=== PATIENT | female | born 1935 | race Caucasian/White ===

== ENCOUNTER 2016-03-28 11:30 | Day surgery (SDC) | payer OTHER ==
[2016-03-20 10:43] VITALS: BMI 22.7
[~2016-03-28 11:30] MED LIST: LIDOCAINE HCL 2% (50ML VIAL) INF ONE; ceFAZolin SODIUM 1 GM VIAL IVPB ONE
[2016-03-28] MEDS ORDERED: CLINDAMYCIN 600 MG PREMIX BAG IVPB ONE (13:49)
[2016-03-28] MEDS ORDERED: LIDOCAINE HCL 2% (50ML VIAL) INF ONE (13:50)
[2016-03-28] MEDS ORDERED: LIDOCAINE HCL 2% (50ML VIAL) PNB ONE (13:50)
--- NOTE | 2016-03-28 14:46 | OP ---
Operative Note - Note: Operative Date: 03/28/16 Pre-Operative Diagnosis: L sub-1st metatarsal DM foot ulcer Operation: L 1st metatarsal head resection, debridement of ulcer Post-Operative Diagnosis: Same as Pre-op Surgeon: Jorden Desai Anesthesia: Local, MAC Specimens Removed: 1st metatarsal head, sesamoids left foot Estimated Blood Loss (mls): 20 Instrument used (Debridements only): #15 blade scalpel- sharp excisional debridement Operative Report Dictated: Yes
[2016-03-28] MEDS ORDERED: ONDANSETRON 4 MG/2 ML VIAL IVPUSH PRN (14:51)
[2016-03-28] MEDS ORDERED: oxyCODONE HCL 5 MG TABLET PO PRN (14:51)
[2016-03-28] MEDS ORDERED: morphine CARPU-JECT 2 MG/1 ML DISP.SYRIN IVPUSH PRN (14:51)
[2016-03-28] MEDS ORDERED: LACTATED RINGERS SOLUTION 1,000 ML IV SCH (15:00)
[2016-03-28 17:26] VITALS: TEMP 97.7
[2016-03-28 17:36] VITALS: BP 143/60; PULSE 86
--- NOTE | 2016-03-29 10:25 | OP ---
DATE OF OPERATION: 03/28/2016 PREOPERATIVE DIAGNOSIS: Left sub 1st metatarsal ulcer, diabetic. POSTOPERATIVE DIAGNOSIS: Left sub 1st metatarsal ulcer, diabetic. PROCEDURE: 1. Left 1st metatarsal head resection. 2. Left foot ulcer debridement. SURGEON: Jorden Desai DPM SPECIAL CLIENT BUS DRIVER: Steven Ascencio, PGY-3, [facility]. ANESTHESIA: Local with IV sedation. HEMOSTASIS: None. ESTIMATED BLOOD LOSS: 20 mL. PATHOLOGY: First metatarsal head, sesamoid, left foot. COMPLICATIONS: None. DESCRIPTION OF PROCEDURE: The patient was brought to the operating room and placed on the operating table in the supine position. I applied a pneumatic ankle tourniquet to the patients left ankle. However, I elected to not use hemostasis during the course of this procedure. Following the induction of IV sedation, local anesthesia was achieved with 10 mL of 2% lidocaine plain in local digital block fashion. The left foot was then scrubbed, prepped, and draped in the usual aseptic fashion. I directed my attention to the left foot where a sub 1st metatarsal ulcer was visualized and appreciated. I began the procedure my making a 4-cm linear longitudinal incision dorsally over the 1st metatarsophalangeal joint. The incision was carried deeply using sharp and blunt dissection taking care to retract vital neural and vascular structures. All bleeders were cauterized and ligated as needed. Next, a dorsal linear capsulotomy was performed over the 1st metatarsophalangeal joint. The deep capsular and periosteal structures were reflected medially and laterally to expose the 1st metatarsal head. Next, using a sagittal saw, the 1st metatarsal head was resected. Once soft tissue attachments were removed, the 1st metatarsal head was removed in total and sent to Pathology for analysis. Next, I continued plantarly to freely mobilize the medial and lateral sesamoids. Those medial and lateral sesamoids were free mobilized and resected using a collar and crown scissors. Once removed, the sesamoids were placed with the 1st metatarsal sent to Pathology for analysis. The surgical site was copiously irrigated with sterile saline. The dorsal 1st metatarsal stump was smoothed using a hand rasp. Next, the surgical site was copiously irrigated with sterile saline. The skin was coapted and maintained utilizing 3-0 nylon in simple interrupted suture fashion. Finally, I directed my attention to the plantar 1st metatarsal ulcer, which was sharply debrided using No. 15 blade scalpel to the level of subcutaneous tissue. On the conclusion of the procedure, the surgical site was packed lightly dorsally using 0.25-inch plain packing. The surgical site was then covered with Xeroform, and a compressive dressing was applied to the left foot consisting of sterile gauze, Susan, Kerlix, and an Jose wrap. The patient tolerated the procedure and anesthesia well without complications. She was transferred from the operating room to the recovery unit with vital signs stable and neurovasculature intact to the left foot. MATTHIAS [id number] cc: [facility]
--- NOTE | 2016-03-30 15:49 | PATH ---
Surgical Pathology Report Patient Name: COSME HITCHCOCK [facility]. Rec. #: [id number] /Age/Gender: 1935 (Age: 80) / F Account: [id number] Location: [facility] SURGICAL Taken: 03/28/2016 Received: 03/29/2016 Reported: 03/30/2016 Physicians: Jorden Desai DPM Specimen(s) Received LEFT FOOT METATARSAL HEAD Clinical History Left foot decubitus ulcer Final Diagnosis BONE, LEFT FIRST METATARSAL HEAD, RESECTION: VIABLE BONE AND CARTILAGE WITH DEGENERATIVE CHANGES. BONE AT RESECTION MARGIN APPEARS VIABLE. Electronically Signed Simone Jacob M.D. Gross Description Received in formalin, labeled "left first bone metatarsal head" are 2 talbot, irregular portions of bone measuring 2.0 x 1.8 x 0.6 cm and 2.4 x 1.8 x 1.5 cm. The larger portion is consistent with a metatarsal head. The metatarsal head displays smooth articular cartilage at one aspect. The opposing aspect displays smooth trabecular bone, possibly consistent with a true bone margin. Also received within the same container is a 2.4 x 1.5 x 0.7 cm irregular portion of talbot soft tissue. Software Reliability Engineer sections are submitted in 4 cassettes as follows: 1-bone margin with smooth articular cartilage from metatarsal head, following decalcification; 2-bone margin with trabecular bone from metatarsal head (probable true bone margin), following decalcification; 3-indirect sales representative sections from smaller portion of bone, following decalcification; 4-indirect sales representative sections from the soft tissue. 03/29/201603/29/2016
--- NOTE | 2016-04-11 08:35 | HP ---
Admitting History and Physical - Primary Care Physician PCP: Jose Petty I - Admission Chief Complaint: L sub-1st metatarsal head ulcer History of Present Illness: Patient is long standing, compliant patient at [facility] [place]. She has sustained a sub-1st metatarsal head ulcer of the left foot for a few months and has not healed appropriately. After discussing conservative and surgical options, the patient elected to have metatarsal head resection and ulcer debridement operatively. History Source: Patient Limitations to Obtaining History: No Limitations (After thorough discussion including risks, benefits and alternatives to surgery, the patient is in agreement for planned procedure. Plan for L 1st metatarsal head resection and debridement of ulcer.) - Past Medical History Cardiovascular: Yes: CAD, HTN, Hyperlipdemia, PA Heme/Onc: Yes: Anemia Infectious Disease: Yes: Other (history of osteo of right foot with prior abscess) - Past Surgical History Past Surgical History: Yes: CABG, Hysterectomy (partial), Stent (2003) - Advance Directives Advance Directives: Yes: Living Will - Smoking History Smoking history: Former smoker Have you smoked in the past 12 months: No Aproximately how many cigarettes per day: 0 If you are a former smoker, when did you quit?: 50 years - Alcohol/Substance Use Hx Alcohol Use: No History of Substance Use: reports: None - Social History ADL: Support Services (uses walker) History of Recent Travel: No Home Medications - Allergies Allergies/Adverse Reactions: Allergies Allergy/AdvReac Type Severity Reaction Status Date / Time Penicillins Allergy Rash Verified 03/28/16 12:37 chocolate AdvReac Unknown Hives Uncoded 03/28/16 12:37 - Home Medications Home Medications: Ambulatory Orders Ascorbic Acid [Vitamin C -] 500 mg PO DAILY #30 tablet 08/06/14 Aspirin Coated [Ecotrin -] 81 mg PO DAILY #30 tablet.ec 08/06/14 Atorvastatin Ca [Lipitor] 40 mg PO HS #1 tablet 08/06/14 Bupropion HCl [Wellbutrin -] 100 mg PO DAILY #30 tablet 08/06/14 Clopidogrel Bisulfate [Plavix -] 75 mg PO DAILY #30 tablet 08/06/14 Glipizide [Glucotrol -] 10 mg PO BID@0700,1630 #60 tablet 08/06/14 Labetalol HCl [Normodyne -] 200 mg PO BID #1 tablet 06/04/15 Levothyroxine [Synthroid -] 25 mcg PO DAILY #30 tablet 08/06/14 Amlodipine Besylate 10 mg PO DAILY 12/17/15 Famotidine [Pepcid -] 40 mg PO HS 12/17/15 Lando-3 Fatty Acids/Fish Oil [Fish Oil 1,000 mg Softgel] 1 each PO DAILY Lisinopril [Prinivil] 20 mg PO DAILY tablet 12/23/15 Acetaminophen [Tylenol] 650 mg PO PRN PRN 03/20/16 Insulin Regular [NOVOLIN R VIAL *IVPUSH / ER / ICU Only*] 0 units SQ BIDAC 03/20 Naloxegol Oxalate [Movantik] 12.5 mg PO DAILY 03/20/16 Oxycodone HCl 5 mg PO HS 03/20/16 Oxycodone HCl 5 mg PO Q6H PRN 03/20/16 Family Disease History - Family Disease History Family Disease History: Diabetes: Father, Other: Mother ( during childbirth) Physical Examination Vital Signs: Vital Signs Temperature 97.7 F 03/28/16 16:00 Pulse Rate 86 03/28/16 17:32 Respiratory Rate 18 03/28/16 17:32 Blood Pressure 143/60 03/28/16 17:32 O2 Sat by Pulse Oximetry (%) 97 03/28/16 15:45
== END 2016-03-28 18:00 ==
LOC: JASU-SURG 11:30
PROVIDERS: ATTEND Student in an Organized Health Care Education/Training Program
PROC: 0HBNXZZ Excision of Left Foot Skin, External Approach (ICD-10-PCS; 2016-03-28)
PROC: 0QBP0ZZ Excision of Left Metatarsal, Open Approach (ICD-10-PCS; principal; 2016-03-28 13:00)
DX: E11.621 Type 2 diabetes mellitus with foot ulcer (principal); Z79.4 Long term (current) use of insulin
CPT/HCPCS: 73630-TC-LT; 88304-TC; 88311-TC; 94760

== ENCOUNTER 2016-05-23 13:11 | Inpatient (IN) | payer OTHER ==
[2016-05-23 13:19] VITALS: BMI 25.9
[2016-05-23] MEDS ORDERED: CLINDAMYCIN 900 MG PREMIX IVPB 50 ML IVPB ONE ×2 (13:45→14:22)
[2016-05-23] MEDS ORDERED: SODIUM CHLORIDE 1,000 ML IV STA (13:45)
--- NOTE | 2016-05-23 14:06 | PDOC ---
History of Present Illness - General History Source: Patient Exam Limitations: No Limitations - History of Present Illness Initial Comments: 05/23/16 14:30 The patient is a year 80 old female, with a significant past medical history of hypertension, hyperlipidemia, diabetes with history of ulcers and diabetic neuropathy, anemia, pneumonia, acute bronchitis, CHF (left ventricular failure) , CAD status post CABG, PA, and thyroid disease, who presents to the emergency department with non healing left wound. Her diving supervisor called in to admit her for this condition. The patient denies chest pain, shortness of breath, headache and dizziness. Denies fever, chills, nausea, vomit, diarrhea and constipation. Denies dysuria, frequency, urgency and hematuria. Allergies: pencillin, levoquin, chocolate Past surgical history: Cardiac stent (x1), bypass, left hip replacement Social history: No alcohol, tobacco or drug use reported PMD - Dr. Francisco Market Asset Protection Manager - Dr. Desai <Grey Bruno - Last Filed: 05/23/16 14:29> <Kimani Lombardi - Last Filed: 05/23/16 16:50> - General Chief Complaint: Wound Stated Complaint: SENT BY PCP/FOR PAIN Time Seen by Provider: 05/23/16 13:44 Past History <Grey Bruno - Last Filed: 05/23/16 14:29> - Past Medical History Anemia: Yes Asthma: (PNEUMONIA,ACUTE BRONCHITIS) Cardiac Disorders: Yes (CAD, PA, stent, CABG) CHF: (LEFT VENTRICULAR FAILURE) Diabetes: Yes (IDDM) GI Disorders: Yes (GERD,CONSTIPATION) HTN: Yes Hypercholesterolemia: Yes Suicide Attempt (Hx): No Thyroid Disease: Yes (HYPOTHYROIDISM) - Surgical History Cardiac Surgery: Yes (STENT X 1, bypass) Orthopedic Surgery: Yes (LEFT HIP REPLACEMENT) - Psycho/Social/Smoking Cessation Hx Anxiety: No Suicidal Ideation: No Smoking Status: No Smoking History: Former smoker Have you smoked in the past 12 months: No Number of Cigarettes Smoked Daily: 0 If you are a former smoker, when did you quit?: 50 years Information on smoking cessation initiated: No Hx Alcohol Use: No Drug/Substance Use Hx: No Substance Use Type: None Hx Substance Use Treatment: No <Kimani Lombardi - Last Filed: 03/21/17 16:50> - Past Medical History Allergies/Adverse Reactions: Allergies Allergy/AdvReac Type Severity Reaction Status Date / Time Penicillins Allergy Rash Verified 05/23/16 13:16 chocolate AdvReac Unknown Hives Uncoded 05/23/16 13:16 Home Medications: Ambulatory Orders Aspirin Coated [Ecotrin -] 81 mg PO DAILY #30 tablet.ec 08/06/14 Atorvastatin Ca [Lipitor] 40 mg PO HS #1 tablet 08/06/14 Bupropion HCl [Wellbutrin -] 100 mg PO DAILY #30 tablet 08/06/14 Clopidogrel Bisulfate [Plavix -] 75 mg PO DAILY #30 tablet 08/06/14 Glipizide [Glucotrol -] 10 mg PO BID@0700,1630 #60 tablet 08/06/14 Labetalol HCl [Normodyne -] 200 mg PO BID #1 tablet 08/06/14 Levothyroxine [Synthroid -] 25 mcg PO DAILY #30 tablet 08/06/14 Amlodipine Besylate 10 mg PO DAILY 12/17/15 Famotidine [Pepcid -] 40 mg PO HS 12/17/15 [place]-3 Fatty Acids/Fish Oil [Fish Oil 1,000 mg Softgel] 1 each PO DAILY Lisinopril [Prinivil] 20 mg PO DAILY tablet 12/23/15 Acetaminophen [Tylenol] 650 mg PO PRN PRN 03/20/16 Insulin Regular [NOVOLIN R VIAL *IVPUSH / ER / ICU Only*] 0 units SQ BIDAC 03/20 Naloxegol Oxalate [Movantik] 12.5 mg PO DAILY 03/20/16 Oxycodone HCl 5 mg PO HS 03/20/16 Clindamycin [Cleocin -] 1 tab PO TID 05/23/16 Review of Systems - Review of Systems Able to Perform ROS?: Yes Comments:: 05/23/16 14:30 GENERAL/CONSTITUTIONAL: No fever or chills. No weakness. HEAD, EYES, EARS, NOSE AND THROAT: No change in vision. No ear pain or discharge. No sore throat. CARDIOVASCULAR: No chest pain or shortness of breath RESPIRATORY: No cough, wheezing, or hemoptysis. GASTROINTESTINAL: No nausea, vomiting, diarrhea or constipation. GENITOURINARY: No dysuria, frequency, or change in urination. MUSCULOSKELETAL: No joint or muscle swelling or pain. No neck or back pain. SKIN: +Non healing left foot ulcer. NEUROLOGIC: No headache, vertigo, loss of consciousness, or change in strength/ sensation. ENDOCRINE: No increased thirst. No abnormal weight change HEMATOLOGIC/LYMPHATIC: No anemia, easy bleeding, or history of blood clots. ALLERGIC/IMMUNOLOGIC: No hives or skin allergy. <Grey Brunoe - Last Filed: 05/23/16 14:29> *Physical Exam - Vital Signs Last Vital Signs Temp Pulse Resp BP Pulse Ox 98.2 F 83 18 165/83 97 05/23/16 13:16 05/23/16 13:16 05/23/16 13:16 05/23/16 13:16 05/23/16 13:16 - Physical Exam Comments: 05/23/16 14:31 GENERAL: Awake, alert, and fully oriented, in no acute distress HEAD: No signs of trauma, normocephalic, atraumatic EYES: PERRLA, EOMI, sclera anicteric, conjunctiva clear ENT: Auricles normal inspection, hearing grossly normal, nares patent, oropharynx clear without exudates. Moist mucosa NECK: Normal ROM, supple, no lymphadenopathy, JVD, or masses LUNGS: No distress, speaks full sentences, clear to auscultation bilaterally HEART: Regular rate and rhythm, normal S1 and S2, no murmurs, rubs or gallops, peripheral pulses normal and equal bilaterally. ABDOMEN: Soft, nontender, normoactive bowel sounds. No guarding, no rebound. No masses EXTREMITIES: +Foot was bandaged and we didnt look at the foot. Patient had just came from the diving supervisor. Normal range of motion. NEUROLOGICAL: Cranial nerves II through XII grossly intact. Normal speech, normal gait, no focal sensorimotor deficits SKIN: Warm, Dry, normal turgor, no rashes or lesions noted. <Terrie Brunopamela Rubalcava - Last Filed: 05/23/16 14:29> - Vital Signs Last Vital Signs Temp Pulse Resp BP Pulse Ox 98.2 F 83 18 165/83 97 05/23/16 13:16 05/23/16 13:16 05/23/16 13:16 05/23/16 13:16 05/23/16 13:16 <Gabrin,Kimani - Last Filed: 05/23/16 16:50> ED Treatment Course - LABORATORY CBC & Chemistry Diagram: 05/23/16 15:15 05/23/16 15:15 <Kimani Lombardi - Last Filed: 05/23/16 16:50> *DC/Admit/Observation/Transfer - Attestations Scribe Attestion: 05/23/16 14:31 Documentation prepared by Grey Bruno, acting as biomedical engineering technologist for Kimani Lombardi MD <Grey Bruno - Last Filed: 05/23/16 14:29> - Discharge Dispostion Admit: Yes <Kimani Lombardi - Last Filed: 05/23/16 16:50> Diagnosis at time of Disposition: Diabetic foot infection Osteomyelitis of ankle or foot, acute Qualifiers: Laterality: left Qualified Code(s): M86.172 - Other acute osteomyelitis, left ankle and foot - Discharge Dispostion Condition at time of disposition: Improved - Referrals Referrals: Rick Francisco MD [Primary Care Provider] -
[2016-05-23 15:28] LABS: BASOPHIL 0.7 % (0-2.0); EOSINOPHIL 2.4 % (0-4.5); MCH 29.7 pg (25.7-33.7); MCHC 34.2 g/dl (32.0-36.0); MEAN CELL VOLUME 86.9 fl (80-96); NEUTROPHILS 76.8 % (42.8-82.8); PLATELET COUNT 295 K/MM3 (134-434); RDW 13.5 % (11.6-15.6); WHITE BLOOD COUNT 9.5 K/mm3 (4.0-10.0)
[2016-05-23 16:05] LABS: ALBUMIN 3.3 g/dl (3.4-5.0); BILIRUBIN,TOTAL 0.4 mg/dL (0.2-1.0); CALCIUM 8.8 mg/dL (8.5-10.1); CREATININE 1.2 mg/dL (0.55-1.02)
[2016-05-23 16:06] LABS: TOT PROT 6.7 g/dl (6.4-8.2)
--- NOTE | 2016-05-23 18:04 | PN ---
Progress Note (short form) - Note Progress Note: ID Consult dictated Infected L foot ulcer/ cellulitis/ possible osteomyelitis PCN, Levaquin allergies Obtain XR, ESR CRP Surgical evaluation Empiric ceftriaxone/ flagyl/ stat dose Vancomycin
[2016-05-23] MEDS ORDERED: VANCOMYCIN 1 GRAM (PRE-DOCKED) 250 ML IVPB ONE ×2 (18:06→18:23)
--- NOTE | 2016-05-23 19:04 | CONS ---
DATE OF CONSULTATION: DATE OF DICTATION: 05/23/2016 INFECTIOUS DISEASE CONSULTATION HISTORY OF PRESENT ILLNESS: The patient is an 80-year-old female who is evaluated for cellulitis and infected ulcer of the left 2nd toe. Patient has a history of diabetes mellitus and history of diabetic foot infections. She was recently at her board mixer tender for care of plantar calluses on the right foot. She recently took a course in clindamycin orally for cellulitis of the left foot. She reports being seen by her board mixer tender last , May 18, at which time her right foot calluses were doing well and her left foot was normal. Over the ensuing days, she developed worsening, erythema, warmth and swelling of the left second toe. She had considerable amount of pain and was taking narcotic analgesics. She was referred to the emergency department by her board mixer tender. In the emergency room, patient is now noted to have an ulceration present at the distal aspect of the left 2nd toe with diffuse swelling and erythema of the toe. It is tender to touch. The erythema extends to the dorsum of the foot. No purulent wound drainage is noted, no foul odor. She denies any associated fever or chills. PAST MEDICAL HISTORY: Positive for diabetes mellitus, history of diabetic foot infections, hypertension, hyperlipidemia, coronary artery disease, myocardial infarction, congestive heart failure, hypothyroidism. PAST SURGICAL HISTORY: Status post coronary artery stent, coronary artery bypass, hysterectomy, right 2nd toe amputation, left total hip replacement. ALLERGIES: PENICILLIN and LEVAQUIN. Patient developed a rash with PENICILLIN and generalized pruritus with Levaquin. MEDICATION: Ecotrin, Lipitor, Wellbutrin, Plavix, Glucotrol, Normodyne, Synthroid, amlodipine, Pepcid, lisinopril, Novolin, oxycodone, Cleocin. SOCIAL HISTORY: She lives at home. She is a former smoker stopped 50 years ago. SYSTEMS REVIEW: Neurologic: No loss of consciousness, seizure activity, or focal weakness. Cardiac: Negative chest pain or palpitations. Respiratory: Negative cough or sputum production. Gastrointestinal: Negative vomiting or diarrhea. Genitourinary: Negative for urinary tract infection. LABORATORY DATA: White count 9.5, hematocrit 32.2, platelet count 295, BUN 28, creatinine 1.2. On review of previous cultures, patient has had multiple wound cultures and bone cultures positive for group B Streptococcus as well as methicillin sensitive Staphylococcus aureus. No documented history of MRSA. PHYSICAL EXAMINATION: General: Patient is elderly in no acute distress. Vital signs: Temperature 98.2, blood pressure 165/83, pulse 83 regular, respirations 18 per minute. HEENT: Sclerae anicteric. Cardiovascular: Heart sounds S1, S2. Respiratory: Lungs clear. Abdomen: Soft. Nontender. 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 She has superficial calluses present on the plantar aspect of the right foot, these do not appear to be infected. Examination of the left foot, diffuse swelling and erythema of the left 2nd toe with an ulceration present at the distal aspect of the toe. Erythema extends to the dorsum of the foot. It is tender to touch. IMPRESSION:1. Infected left second toe ulcer with cellulitis and possible osteomyelitis. 2. Diabetes mellitus. 3. PENICILLIN and LEVAQUIN allergies. Obtain x-ray of the foot, sedimentation rate, C-reactive protein , surgical evaluation, empiric antibiotic coverage with ceftriaxone 2 g IV piggyback every 24 hours, Flagyl 500 mg IV piggyback every 8 hours, stat dose of vancomycin, local wound care, surgical evaluation, will follow. Thank you for the kind referral. MAGO HARKINS M.D. 1 CECILIA/[id number]
[2016-05-23] MEDS ORDERED: METRONIDAZOLE 500 MG PREMIXED 100 ML IVPB ONE (19:32)
[2016-05-23] MEDS: ACETAMINOPHEN 325 MG TABLET (FP) PO PRN (23:05)
[2016-05-23] MEDS: RANITIDINE HCL 150 MG TABLET (FP) PO SCH (23:08)
[2016-05-23] MEDS: LABETALOL HCL 200 MG TABLET (FP) PO SCH (23:09)
[2016-05-23] MEDS: ATORVASTATIN CA 40 MG TABLET (FP) PO SCH (23:09)
[2016-05-23] MEDS: HEPARIN NA (PORCINE) 5,000 UNITS/ML 1ML VIAL SQ SCH (23:12)
[2016-05-23] MEDS: INSULIN SLIDING SCALE (NOVOLOG) 1 VIAL SQ SCH (23:15)
[2016-05-23] MEDS: CEFTRIAXONE 100 ML IVPB SCH (23:27)
[2016-05-24] MEDS: METRONIDAZOLE 500 MG PREMIXED 100 ML IVPB SCH ×4 (00:12→17:49)
[2016-05-24] MEDS: glipiZIDE 5 MG TABLET (FP) PO SCH ×2 (06:20→17:49)
[2016-05-24] MEDS: ACETAMINOPHEN 325 MG TABLET (FP) PO PRN (06:21)
[2016-05-24] MEDS: LEVOTHYROXINE NA 25 MCG TABLET (FP) PO SCH (06:23)
[2016-05-24] MEDS: INSULIN SLIDING SCALE (NOVOLOG) 1 VIAL SQ SCH ×4 (06:24→21:20)
[2016-05-24 07:58] LABS: BASOPHIL 0.6 % (0-2.0); EOSINOPHIL 2.5 % (0-4.5); MCH 29.7 pg (25.7-33.7); MEAN CELL VOLUME 87.4 fl (80-96); NEUTROPHILS 73.9 % (42.8-82.8); PLATELET COUNT 255 K/MM3 (134-434); RDW 13.4 % (11.6-15.6); WHITE BLOOD COUNT 9.2 K/mm3 (4.0-10.0)
[2016-05-24 08:34] LABS: ALBUMIN 3.3 g/dl (3.4-5.0); BILIRUBIN,TOTAL 0.4 mg/dL (0.2-1.0); CALCIUM 8.4 mg/dL (8.5-10.1); CREATININE 1.1 mg/dL (0.55-1.02); TOT PROT 6.9 g/dl (6.4-8.2)
[2016-05-24] MEDS ORDERED: DOCUSATE SODIUM 100 MG CAPSULE (FP) PO PRN (08:36)
--- NOTE | 2016-05-24 08:38 | HP ---
Admitting History and Physical - Admission History of Present Illness: 80 old female, with a significant past medical history of hypertension, hyperlipidemia, diabetes with history of ulcers and diabetic neuropathy, anemia , pneumonia, acute bronchitis, CHF (left ventricular failure), CAD status post CABG, HI, and thyroid disease, who presents to the emergency department with non healing left wound. Her outdoor adventure leader called in to admit her for this condition. - Past Medical History Cardiovascular: Yes: CAD, HTN, Hyperlipdemia, HI Heme/Onc: Yes: Anemia Infectious Disease: Yes: Other (history of osteo of right foot with prior abscess) Endocrine: Yes: Diabetes Mellitus - Past Surgical History Past Surgical History: Yes: CABG, Hysterectomy (partial), Stent (2004) - Advance Directives Advance Directives: Yes: DNR - Smoking History Smoking history: Former smoker Have you smoked in the past 12 months: No Aproximately how many cigarettes per day: 0 If you are a former smoker, when did you quit?: 50 years - Alcohol/Substance Use Hx Alcohol Use: No History of Substance Use: reports: None - Social History ADL: Support Services (uses walker) History of Recent Travel: No Home Medications - Allergies Allergies/Adverse Reactions: Allergies Allergy/AdvReac Type Severity Reaction Status Date / Time levofloxacin [From Levaquin] Allergy Verified 05/23/16 19:05 Penicillins Allergy Rash Verified 05/23/16 13:16 chocolate AdvReac Unknown Hives Uncoded 05/23/16 13:16 - Home Medications Home Medications: Ambulatory Orders Aspirin Coated [Ecotrin -] 81 mg PO DAILY #30 tablet.ec 08/06/14 Atorvastatin Ca [Lipitor] 40 mg PO HS #1 tablet 08/06/14 Bupropion HCl [Wellbutrin -] 100 mg PO DAILY #30 tablet 08/06/14 Clopidogrel Bisulfate [Plavix -] 75 mg PO DAILY #30 tablet 08/06/14 Glipizide [Glucotrol -] 10 mg PO BID@0700,1630 #60 tablet 08/06/14 Labetalol HCl [Normodyne -] 200 mg PO BID #1 tablet 08/06/14 Levothyroxine [Synthroid -] 25 mcg PO DAILY #30 tablet 08/06/14 Amlodipine Besylate 10 mg PO DAILY 12/17/15 Famotidine [Pepcid -] 40 mg PO HS 12/17/15 [place]ermit-3 Fatty Acids/Fish Oil [Fish Oil 1,000 mg Softgel] 1 each PO DAILY Lisinopril [Prinivil] 20 mg PO DAILY tablet 12/23/15 Acetaminophen [Tylenol] 650 mg PO PRN PRN 03/20/16 Insulin Regular [NOVOLIN R VIAL *IVPUSH / ER / ICU Only*] 0 units SQ BIDAC 03/20 Naloxegol Oxalate [Movantik] 12.5 mg PO DAILY 03/20/16 Oxycodone HCl 5 mg PO HS 03/20/16 Clindamycin [Cleocin -] 1 tab PO TID 05/23/16 Family Disease History - Family Disease History Family Disease History: Diabetes: Father, Other: Mother ( during childbirth) Review of Systems - Review of Systems Cardiovascular: denies: Chest Pain, Palpitations Respiratory: reports: No Symptoms Gastrointestinal: denies: Abdominal Pain, Nausea, Vomiting Musculoskeletal: reports: Extremity Pain, Other (TOE PAIN AND SWELLING WITH ULCER) Integumentary: reports: Wound Neurological: reports: No Symptoms Physical Examination Vital Signs: Vital Signs Temperature 98.0 F 05/24/16 06:00 Pulse Rate 65 05/24/16 06:00 Respiratory Rate 18 05/24/16 06:00 Blood Pressure 163/76 05/24/16 06:00 O2 Sat by Pulse Oximetry (%) 98 05/23/16 21:00 Cardiovascular: Yes: Regular Rate and Rhythm Respiratory: Yes: Regular, CTA Bilaterally Gastrointestinal: Yes: Normal Bowel Sounds, Soft Extremities: Yes: Erythema (LT TOE) Wound/Incision: Yes: Dressing Removed, Reddened, Excoriated Problem List - Problems (1) Diabetic foot infection Assessment/Plan: IV ABX ID AND PODIATRY Code(s): E11.69 - TYPE 2 DIABETES MELLITUS WITH OTHER SPECIFIED COMPLICATION L08.9 - LOCAL INFECTION OF THE SKIN AND SUBCUTANEOUS TISSUE, UNSP (2) Diabetes Assessment/Plan: MONITOR BGM ENDO SAME MEDS Code(s): E11.9 - TYPE 2 DIABETES MELLITUS WITHOUT COMPLICATIONS Qualifiers: Diabetes mellitus type: type 2 Diabetes mellitus complication status: with circulatory complication Diabetes mellitus complication detail: with other circulatory complications (3) CAD (coronary artery disease) of artery bypass graft Assessment/Plan: HAS NOT SEEN CARDIO IN YEARS--DOES NOT HAVE A RESEARCH LAB ASSISTANT ECHO NO CP SAME MEDS CARDIO FOR PREOP ASSESSMENT Code(s): I25.810 - ATHEROSCLEROSIS OF CABG W/O ANGINA PECTORIS
[2016-05-24] MEDS ORDERED: amLODIPine BESYLATE 10 MG TABLET (FP) PO SCH (10:00)
[2016-05-24] MEDS ORDERED: LEVOFLOXACIN 500 MG IVPB 100 ML IVPB SCH (10:00)
[2016-05-24] MEDS ORDERED: PATIENT'S OWN MEDICATION (NON-FORMULARY) (Naloxegol Oxalate [Movantik] 12.5 MG) PO SCH (10:00)
[2016-05-24] MEDS ORDERED: LISINOPRIL 20 MG TABLET (FP) PO SCH (10:00)
[2016-05-24] MEDS ORDERED: LEVOTHYROXINE NA 25 MCG TABLET (FP) PO SCH (10:00)
[2016-05-24] MEDS ORDERED: buPROPion HCL 100 MG TABLET PO SCH (10:00)
--- NOTE | 2016-05-24 11:02 | CONSULT ---
Consult - text type - Consultation Consultation Note: Podiatry Consultation: 80 year old DM F well known to me from [facility], presents yesterday to [facility] with grossly swollen, red L 3rd toe with bone exposed. Patient states that she does not known how long or how the toe became to be that way. She is unsure if trauma is causative. Does have neuropathy to the feet. Denies having F/V/N/C/ SOB/CP. Currently afebrile, VSS. PMHx: DM II, HTN, HLP, CAD s/p stent Meds: noted in chart PSHx: multiple foot amputations ALL: levofloxacin, PCN RAUL: L foot: 3rd toe dorsal IPJ ulcer with exposed bone, gross erythema and edema to the toe, severe contracture to the third toe. There is no purulent drainage, no fluctuance, no soft tissue crepitus, no streaking cellulitis. WBC: 9.2 L foot xray: interval amputation and 2nd metatarsal head resection. Imp: 80 year old DM F with L 3rd toe ulcer with cellulitis, acute osteomyelitis 1. IV abx per ID 2. Plan for L 3rd toe amputation tomrrow morning. NPO at midnight. 3. Will follow post-operatively. Santi Desai DPM
[2016-05-24] MEDS ORDERED: PT OWN MED DRAWER 7, Y5N ONE (11:05)
[2016-05-24] MEDS: LABETALOL HCL 200 MG TABLET (FP) PO SCH ×2 (11:07→21:19)
[2016-05-24] MEDS: oxyCODONE HCL 5 MG TABLET PO PRN ×2 (11:07→21:19)
[2016-05-24] MEDS: CEFTRIAXONE 100 ML IVPB SCH (11:08)
[2016-05-24] MEDS: HEPARIN NA (PORCINE) 5,000 UNITS/ML 1ML VIAL SQ SCH ×3 (11:08→21:19)
--- NOTE | 2016-05-24 11:21 | PN ---
Progress Note, Physician History of Present Illness: C/O L foot pain No c/o fever/ chills Tolerating antibiotics without adverse rxn - Current Medication List Current Medications: Active Medications Acetaminophen (Tylenol -) 650 mg PO Q4H PRN PRN Reason: FEVER OR PAIN Last Admin: 05/24/16 06:21 Dose: 650 mg Amlodipine Besylate (Norvasc -) 10 mg PO DAILY [facility] Last Admin: 05/24/16 11:07 Dose: 10 mg Atorvastatin Calcium (Lipitor -) 40 mg PO HS [facility] Last Admin: 05/23/16 23:09 Dose: 40 mg Bupropion HCl (Wellbutrin -) 100 mg PO DAILY [facility] Docusate Sodium (Colace -) 100 mg PO BID PRN PRN Reason: CONSTIPATION Last Admin: 05/24/16 11:07 Dose: 100 mg Glipizide (Glucotrol -) 10 mg PO BID@0700,1630 [facility] Last Admin: 05/24/16 06:20 Dose: 10 mg Heparin Sodium (Porcine) (Heparin -) 5,000 unit SQ BID [facility] Last Admin: 05/24/16 11:08 Dose: 5,000 unit Ceftriaxone Sodium (Rocephin 2gm Ivpb (Pre-Docked)) 100 mls @ 200 mls/hr IVPB DAILY [facility] Last Admin: 05/24/16 11:08 Dose: 200 mls/hr Metronidazole (Flagyl 500mg Premixed Ivpb -) 100 mls @ 100 mls/hr IVPB Q8H-IV [facility] Last Admin: 05/24/16 11:09 Dose: 100 mls/hr Insulin Aspart (Novolog Vial Sliding Scale -) 1 vial SQ ACHS [facility] PRN Reason: Protocol Labetalol HCl (Normodyne -) 200 mg PO BID [facility] Last Admin: 05/24/16 11:07 Dose: 200 mg Levothyroxine Sodium (Synthroid -) 25 mcg PO DAILY@0700 [facility] Last Admin: 05/24/16 06:23 Dose: Not Given Lisinopril (Prinivil) 20 mg PO DAILY [facility] Last Admin: 05/24/16 11:08 Dose: 20 mg Non-Formulary Medication (Naloxegol Oxalate [Movantik]) 12.5 mg PO DAILY [facility] Oxycodone HCl (Roxicodone -) 5 mg PO Q6H PRN PRN Reason: PAIN Last Admin: 05/24/16 11:07 Dose: 5 mg Ranitidine HCl (Zantac -) 300 mg PO HS [facility] Last Admin: 05/23/16 23:08 Dose: 300 mg - Objective Vital Signs: Vital Signs Temperature 98.0 F 05/24/16 06:00 Pulse Rate 65 05/24/16 06:00 Respiratory Rate 18 05/24/16 06:00 Blood Pressure 163/76 05/24/16 06:00 O2 Sat by Pulse Oximetry (%) 98 05/23/16 21:00 Constitutional: Yes: No Distress Eyes: Yes: Conjunctiva Clear Cardiovascular: Yes: Regular Rate and Rhythm, S1, S2 Respiratory: Yes: CTA Bilaterally Gastrointestinal: Yes: Normal Bowel Sounds, Soft. No: Tenderness Extremities: Yes: Other (L 3rd toe swollen, slight decreased erythema) Labs: CBC, BMP 05/24/16 06:45 05/24/16 06:45 Assessment/Plan Cellulitis/ infected ulcer L 3rd toe Possible osteomyelitis PCN/ quinolone allergies Diabetes/ diabetic neuropathy Await c/s Continue ceftriaxone/ flagyl
--- NOTE | 2016-05-24 12:30 | EKG ---
Test Reason : Blood Pressure : / mmHG Vent. Rate : 086 BPM Atrial Rate : 086 BPM P-R Int : 194 ms QRS Dur : 132 ms QT Int : 430 ms P-R-T Axes : 060 -49 080 degrees QTc Int : 514 ms NORMAL SINUS RHYTHM RIGHT BUNDLE BRANCH BLOCK LEFT ANTERIOR FASCICULAR BLOCK BIFASCICULAR BLOCK LEFT VENTRICULAR HYPERTROPHY WITH REPOLARIZATION ABNORMALITY ABNORMAL ECG WHEN COMPARED WITH ECG OF 22-MAR-2015 15:33, RIGHT BUNDLE BRANCH BLOCK HAS REPLACED RSR' PATTERN IN V1 Confirmed by IRIS LOCKE, BOO ([id number]) on 05/24/2016 12:29:51 PM Referred By: Confirmed By:BOO SIMMONS MD
[2016-05-24 12:39] LABS: C-REACTIVE PROTEIN 2.6 MG/DL (0.00-0.3)
--- NOTE | 2016-05-24 13:40 | CON.CARD ---
Consult Consult Specialty:: Cardiology Referred by:: Dr. Francisco Reason for Consultation:: Pre-operative cardiac evaluation - History of Present Illness Chief Complaint: I need left 3rd toe amputation History of Present Illness: 80 yo female with HTN, hyperlipidemia, DM with diabetic neuropathy, prior left 2nd toe amputation, CAD, NSTEMI 05/2014 -> CABG at [facility], who was admitted on 05/23/16 with 3rd left toe pain and swelling since last (per patient) . Patient currently pending left 3rd toe amputation tomorrow for reported osteomyelitis. Patient reports that she has not seen a human resources consultant as an outpatient and that her PMD manages her cardiac care at this time. She denies any prior stress tests following her CABG at [facility] in 2014. Denies any exertional chest pain or dyspnea with 1 flight of stairs. - History Source History Provided By: Patient Limitations to Obtaining History: No Limitations - Past Medical History Cardio/Vascular: Yes: CAD, HTN, Hyperlipdemia, [place] (NSTEMI 04/2014) Infectious Disease: Yes: Other (history of osteo of right foot with prior abscess) Endocrine: Yes: Diabetes Mellitus - Past Surgical History Past Surgical History: Yes: CABG (05/2014), Hysterectomy (partial), Stent (2003) Additional Surgical History: Left 2nd toe amputation in 03/2015 - Alcohol/Substance Use Hx Alcohol Use: No History of Substance Use: reports: None - Smoking History Smoking history: Former smoker Have you smoked in the past 12 months: No Aproximately how many cigarettes per day: 0 If you are a former smoker, when did you quit?: 50 years - Social History Usual Living Arrangement: Long Term ADL: Support Services (uses walker) History of Recent Travel: No Home Medications - Allergies Allergies/Adverse Reactions: Allergies Allergy/AdvReac Type Severity Reaction Status Date / Time levofloxacin [From Levaquin] Allergy Verified 05/23/16 19:05 Penicillins Allergy Rash Verified 05/23/16 13:16 chocolate AdvReac Unknown Hives Uncoded 05/23/16 13:16 - Home Medications Home Medications: Ambulatory Orders Aspirin Coated [Ecotrin -] 81 mg PO DAILY #30 tablet.ec 08/06/14 Atorvastatin Ca [Lipitor] 40 mg PO HS #1 tablet 08/06/14 Bupropion HCl [Wellbutrin -] 100 mg PO DAILY #30 tablet 08/06/14 Clopidogrel Bisulfate [Plavix -] 75 mg PO DAILY #30 tablet 08/06/14 Glipizide [Glucotrol -] 10 mg PO BID@0700,1630 #60 tablet 08/06/14 Labetalol HCl [Normodyne -] 200 mg PO BID #1 tablet 08/06/14 Levothyroxine [Synthroid -] 25 mcg PO DAILY #30 tablet 08/06/14 Amlodipine Besylate 10 mg PO DAILY 12/17/15 Famotidine [Pepcid -] 40 mg PO HS 12/17/15 Doon-3 Fatty Acids/Fish Oil [Fish Oil 1,000 mg Softgel] 1 each PO DAILY Lisinopril [Prinivil] 20 mg PO DAILY tablet 12/23/15 Acetaminophen [Tylenol] 650 mg PO PRN PRN 03/20/16 Insulin Regular [NOVOLIN R VIAL *IVPUSH / ER / ICU Only*] 0 units SQ BIDAC 03/20 Naloxegol Oxalate [Movantik] 12.5 mg PO DAILY 03/20/16 Oxycodone HCl 5 mg PO HS 03/20/16 Clindamycin [Cleocin -] 1 tab PO TID 05/23/16 Family Disease History - Family Disease History Family Disease History: Diabetes: Father, Other: Mother ( during childbirth) Review of Systems - Review of Systems Constitutional: reports: No Symptoms HENT: reports: No Symptoms Neck: reports: No Symptoms Cardiovascular: reports: No Symptoms Gastrointestinal: reports: No Symptoms Genitourinary: reports: No Symptoms Musculoskeletal: reports: Other (Left 3rd toe pain and swelling) Neurological: reports: No Symptoms Endocrine: reports: No Symptoms Hematology/Lymphatic: reports: No Symptoms Psychiatric: reports: No Symptoms Vital Signs: Vital Signs Temperature 97.3 F L 05/24/16 10:00 Pulse Rate 86 05/24/16 10:00 Respiratory Rate 18 05/24/16 10:00 Blood Pressure 176/90 05/24/16 10:00 O2 Sat by Pulse Oximetry (%) 98 05/23/16 21:00 Constitutional: Yes: No Distress HENT: Yes: Atraumatic, Normocephalic Respiratory: Yes: CTA Bilaterally Gastrointestinal: Yes: Normal Bowel Sounds, Tenderness JVD: No Carotid Bruit: No PMI: Non-Displaced Murmur: No: Systolic Murmur Musculoskeletal: Yes: Other (Left 2nd toe amputation, left 3rd toe with swelling and erythema/ulceration) Edema: No Neurological: Yes: Alert, Oriented, Cran Nerves II-XII Intact ...Motor Strength: WNL Psychiatric: Yes: WNL - Other Data Labs, Other Data: CBC, BMP 05/24/16 06:45 05/24/16 06:45 05/23/16 ECG: Sinus rhythm, rate 86 bpm, RBBB, LVH, LAD Echo: Report Reviewed (08/03/14 Echo: Technically limited study. Normal LV size and systolic function. Mild MAC. Mild MR. Mild AV sclerosis. Mild AR. Mod [place].) Imaging - Results Chest X-ray: Report Reviewed (05/23/16: No acute pulmonary process) Assessment/Plan 80 yo female with HTN, hyperlipidemia, DM with diabetic neuropathy, prior left 2nd toe amputation, CAD, NSTEMI 05/2014 -> CABG at [facility]. Currently pending left 3rd toe amputation tomorrow for reported osteomyelitis. Patient's blood pressure is not optimally controlled on current regimen. RECS: Patient does not have any cardiac contraindications to her surgery tomorrow. Patient may proceed with acceptable cardiac risk and without further cardiac work-up for her needed surgery. Continue patient's beta-blockers rj-operatively. Will increase lisinopril to 40 mg po daily for better BP control. Will follow. Call with questions.
[2016-05-24] MEDS ORDERED: LISINOPRIL 20 MG TABLET (FP) PO ONE (15:30)
[2016-05-24] MEDS: ATORVASTATIN CA 40 MG TABLET (FP) PO SCH (21:19)
[2016-05-24] MEDS: RANITIDINE HCL 150 MG TABLET (FP) PO SCH (21:19)
[2016-05-25] MEDS: METRONIDAZOLE 500 MG PREMIXED 100 ML IVPB SCH ×3 (03:10→18:33)
[2016-05-25] MEDS: glipiZIDE 5 MG TABLET (FP) PO SCH ×2 (06:09→18:33)
[2016-05-25] MEDS: LEVOTHYROXINE NA 25 MCG TABLET (FP) PO SCH (06:09)
[2016-05-25] MEDS: INSULIN SLIDING SCALE (NOVOLOG) 1 VIAL SQ SCH ×4 (06:43→21:07)
[2016-05-25] MEDS ORDERED: MIDAZOLAM HCL 2 MG/2 ML SINGLE DOSE VIAL ONE (07:38)
[2016-05-25] MEDS ORDERED: LIDOCAINE HCL 2% (20ML MULTI-DOSE VIAL) NR ONE (07:47)
[2016-05-25] MEDS ORDERED: LIDOCAINE HCL/PF 2% SDV 5ML VIAL ONE (07:51)
[2016-05-25] MEDS ORDERED: PROPOFOL 20 ML ONE (07:51)
[2016-05-25] MEDS ORDERED: LIDOCAINE HCL 2% (50ML VIAL) INF ONE ×2 (08:21)
[2016-05-25] MEDS ORDERED: ONDANSETRON 4 MG/2 ML VIAL IVPUSH PRN ×2 (08:52→09:04)
[2016-05-25] MEDS ORDERED: oxyCODONE HCL 5 MG TABLET PO PRN ×2 (08:53→09:04)
--- NOTE | 2016-05-25 08:53 | OP ---
Operative Note - Note: Operative Date: 05/25/16 Pre-Operative Diagnosis: L 3rd toe DM ulcer and osteomyelitis Operation: L 3rd toe amputation, 3rd metatarsal head resection with bone biopsy/ culture Post-Operative Diagnosis: Same as Pre-op Surgeon: Jorden Desai Anesthesia: Local, MAC Specimens Removed: Bone, left foot Estimated Blood Loss (mls): 5 Operative Report Dictated: Yes
[2016-05-25] MEDS ORDERED: LACTATED RINGERS SOLUTION 1,000 ML IV SCH ×2 (09:00→09:04)
[2016-05-25] MEDS ORDERED: DOCUSATE SODIUM 100 MG CAPSULE (FP) PO PRN (09:04)
[2016-05-25] MEDS: CEFTRIAXONE 100 ML IVPB SCH (09:52)
[2016-05-25] MEDS ORDERED: LISINOPRIL 20 MG TABLET (FP) PO SCH (10:00)
[2016-05-25] MEDS ORDERED: PATIENT'S OWN MEDICATION (NON-FORMULARY) (Naloxegol Oxalate [Movantik] 12.5 MG) PO SCH (10:00)
[2016-05-25] MEDS: HEPARIN NA (PORCINE) 5,000 UNITS/ML 1ML VIAL SQ SCH ×3 (10:53→21:05)
[2016-05-25] MEDS: amLODIPine BESYLATE 10 MG TABLET (FP) PO SCH (10:53)
[2016-05-25] MEDS: LABETALOL HCL 200 MG TABLET (FP) PO SCH ×2 (10:53→21:06)
[2016-05-25] MEDS: LISINOPRIL 20 MG TABLET (FP) PO SCH (10:53)
[2016-05-25] MEDS: buPROPion HCL 100 MG TABLET PO SCH (10:55)
--- NOTE | 2016-05-25 11:54 | PN ---
Progress Note, Physician History of Present Illness: 80 yo female with HTN, hyperlipidemia, DM with diabetic neuropathy, prior left 2nd toe amputation, CAD, NSTEMI 05/2014 -> CABG at [facility], who was admitted on 05/23/16 with 3rd left toe pain and swelling since last (per patient) . Patient currently pending left 3rd toe amputation tomorrow for reported osteomyelitis. Patient reports that she has not seen a recruitment specialist as an outpatient and that her PMD manages her cardiac care at this time. She denies any prior stress tests following her CABG at [facility] in 2014. Denies any exertional chest pain or dyspnea with 1 flight of stairs. - Current Medication List Current Medications: Active Medications Acetaminophen (Tylenol -) 650 mg PO Q4H PRN PRN Reason: FEVER OR PAIN Amlodipine Besylate (Norvasc -) 10 mg PO DAILY [facility] Last Admin: 05/25/16 10:53 Dose: 10 mg Atorvastatin Calcium (Lipitor -) 40 mg PO [facility] Bupropion HCl (Wellbutrin -) 100 mg PO DAILY [facility] Last Admin: 05/25/16 10:55 Dose: 100 mg Docusate Sodium (Colace -) 100 mg PO BID PRN PRN Reason: CONSTIPATION Last Admin: 05/25/16 10:53 Dose: 100 mg Fentanyl (Sublimaze Injection -) 25 mcg IVPUSH [id number] PRN PRN Reason: PAIN Stop: 05/28/16 08:53 Glipizide (Glucotrol -) 10 mg PO BID@0700,1630 [facility] Heparin Sodium (Porcine) (Heparin -) 5,000 unit SQ BID [facility] Last Admin: 05/25/16 11:03 Dose: Not Given Ceftriaxone Sodium (Rocephin 2gm Ivpb (Pre-Docked)) 100 mls @ 200 mls/hr IVPB DAILY [facility] Last Admin: 05/25/16 09:52 Dose: 200 mls/hr Metronidazole (Flagyl 500mg Premixed Ivpb -) 100 mls @ 100 mls/hr IVPB Q8H-IV [facility] Last Admin: 05/25/16 10:52 Dose: 100 mls/hr Insulin Aspart (Novolog Vial Sliding Scale -) 1 vial SQ ACHS [facility] PRN Reason: Protocol Labetalol HCl (Normodyne -) 200 mg PO BID [facility] Last Admin: 05/25/16 10:53 Dose: 200 mg Levothyroxine Sodium (Synthroid -) 25 mcg PO DAILY@0700 [facility] Lisinopril (Prinivil) 40 mg PO DAILY [facility] Last Admin: 05/25/16 10:53 Dose: 40 mg Non-Formulary Medication (Naloxegol Oxalate [Movantik]) 12.5 mg PO DAILY [facility] Ondansetron HCl (Zofran Injection) 4 mg IVPUSH Q6H PRN PRN Reason: NAUSEA AND/OR VOMITING Stop: 05/25/16 14:53 Oxycodone HCl (Roxicodone -) 5 mg PO Q6H PRN PRN Reason: PAIN Oxycodone HCl (Roxicodone -) 5 mg PO Q4H PRN PRN Reason: PAIN LEVEL 1-5 Ranitidine HCl (Zantac -) 300 mg PO HS [facility] - Objective Vital Signs: Vital Signs Temperature 97.7 F 05/25/16 09:30 Pulse Rate 60 05/25/16 09:30 Respiratory Rate 16 05/25/16 09:30 Blood Pressure 170/60 05/25/16 09:30 O2 Sat by Pulse Oximetry (%) 100 05/25/16 09:15 Labs: CBC, BMP 05/24/16 06:45 05/24/16 06:45 Assessment/Plan 80 yo female with HTN, hyperlipidemia, DM with diabetic neuropathy, prior left 2nd toe amputation, CAD, NSTEMI 05/2014 -> CABG at [facility]. Underwent left 3rd toe amputation today without complications. Patient's blood pressure is not optimally controlled on current regimen. Her lisinopril was increased to 40 mg daily yesterday. Currently elevated, but patient also post-op. RECS: Continue labetalol 200 mg po bid, amlodipine 10 mg po daily, and lisinopril 40 mg po daily. If BP remains uncontrolled, would add diuretic to current regimen or change calcium channel benjamin versus adding hydralazine. Will follow. Call with questions.
[2016-05-25] MEDS ORDERED: INSULIN DETEMIR 100 UNITS/ML MDV SQ ONE (12:39)
--- NOTE | 2016-05-25 13:03 | OP ---
DATE OF OPERATION: 05/25/2016 PREOPERATIVE DIAGNOSIS: Left 3rd toe diabetic foot infection with osteomyelitis. POSTOPERATIVE DIAGNOSIS: Left 3rd toe diabetic foot infection with osteomyelitis. PROCEDURE: Left 3rd toe amputation, 3rd metatarsal head resection with bone biopsy and culture. SURGEON: Jorden Desai DPM TRUCKSMITH: Dr. Gayle, PGY-3 [facility] resident. HEMOSTASIS: None. ANESTHESIA: Local with IV sedation. ESTIMATED BLOOD LOSS: Minimal. PATHOLOGY: Bone, left foot. COMPLICATIONS: None. DESCRIPTION OF PROCEDURE: The patient was brought to the operating room and placed on the operating table in the supine position. I applied a pneumatic ankle tourniquet to the left ankle. However, I elected not to use hemostasis during the course of this procedure. Following the induction of IV sedation, local anesthesia was achieved with 10 mL of 2% lidocaine plain. The left foot was then scrubbed, prepped, and draped in the usual aseptic fashion. Attention was directed to the left 3rd toe, where a dorsal IPJ ulcer with exposed bone and surrounding cellulitis was visualized and appreciated. I begin by making a linear incision over the 3rd metatarsal shaft extending distally in a [id number] fashion to circumvent the 3rd toe. The incision was deepened via sharp and blunt dissection taking care to retract vital neural and vascular structures. All bleeders were cauterized and ligated as needed. The 3rd toe was disarticulated at the level of the metatarsophalangeal joint. The 3rd toe was removed in total and sent to Pathology for analysis. Next, we performed a dorsal linear capsulotomy over the 3rd metatarsal shaft. The periosteum was reflected medially and laterally using a [place] elevator. This exposed the 3rd metatarsal shaft. The sagittal saw was then used to resect the 3rd metatarsal head at the level of the surgical neck. This was removed from the operative field and sent to Pathology for analysis. A proximal portion of bone was then resected proximally using the sagittal saw. A portion of this bone was sent for proximal bone culture, and the remainder was sent for proximal metatarsal pathology. A soft tissue culture was taken next. The surgical site was copiously irrigated with sterile saline. The surgical site was packed with 0.25-inch Iodoform packing. The remainder of the incision was closed using 3-0 nylon in a simple interrupted suture fashion. Following the conclusion of the procedure, Xeroform was applied to the incision site following dry sterile compressive dressing consisting of sterile gauze, Susan, Kerlix, and an Jose wrap. The patient tolerated the procedure and anesthesia well without complications. She was transferred from the operating room to the recovery unit with vital signs stable and neurovasculature intact to the left foot. MATTHIAS TRAN/[id number] cc: [facility] Podiatry
--- NOTE | 2016-05-25 13:19 | PN ---
Progress Note, Physician History of Present Illness: S/P amputation of toe No c/o pain No fever/ chills Tolerating antibiotics - Current Medication List Current Medications: Active Medications Acetaminophen (Tylenol -) 650 mg PO Q4H PRN PRN Reason: FEVER OR PAIN Amlodipine Besylate (Norvasc -) 10 mg PO DAILY [facility] Last Admin: 05/25/16 10:53 Dose: 10 mg Atorvastatin Calcium (Lipitor -) 40 mg PO HS [facility] Bupropion HCl (Wellbutrin -) 100 mg PO DAILY [facility] Last Admin: 05/25/16 10:55 Dose: 100 mg Docusate Sodium (Colace -) 100 mg PO BID PRN PRN Reason: CONSTIPATION Last Admin: 05/25/16 10:53 Dose: 100 mg Fentanyl (Sublimaze Injection -) 25 mcg IVPUSH [id number] PRN PRN Reason: PAIN Stop: 05/28/16 08:53 Glipizide (Glucotrol -) 10 mg PO BID@0700,1630 [facility] Heparin Sodium (Porcine) (Heparin -) 5,000 unit SQ BID [facility] Last Admin: 05/25/16 11:03 Dose: Not Given Ceftriaxone Sodium (Rocephin 2gm Ivpb (Pre-Docked)) 100 mls @ 200 mls/hr IVPB DAILY [facility] Last Admin: 05/25/16 09:52 Dose: 200 mls/hr Metronidazole (Flagyl 500mg Premixed Ivpb -) 100 mls @ 100 mls/hr IVPB Q8H-IV [facility] Last Admin: 05/25/16 10:52 Dose: 100 mls/hr Insulin Aspart (Novolog Vial Sliding Scale -) 1 vial SQ ACHS [facility] PRN Reason: Protocol Last Admin: 05/25/16 12:44 Dose: 2 units Labetalol HCl (Normodyne -) 200 mg PO BID [facility] Last Admin: 05/25/16 10:53 Dose: 200 mg Levothyroxine Sodium (Synthroid -) 25 mcg PO DAILY@0700 [facility] Lisinopril (Prinivil) 40 mg PO DAILY [facility] Last Admin: 05/25/16 10:53 Dose: 40 mg Non-Formulary Medication (Naloxegol Oxalate [Movantik]) 12.5 mg PO DAILY [facility] Ondansetron HCl (Zofran Injection) 4 mg IVPUSH Q6H PRN PRN Reason: NAUSEA AND/OR VOMITING Stop: 05/25/16 14:53 Oxycodone HCl (Roxicodone -) 5 mg PO Q6H PRN PRN Reason: PAIN Oxycodone HCl (Roxicodone -) 5 mg PO Q4H PRN PRN Reason: PAIN LEVEL 1-5 Ranitidine HCl (Zantac -) 300 mg PO HS [facility] - Objective Vital Signs: Vital Signs Temperature 97.7 F 05/25/16 09:30 Pulse Rate 60 05/25/16 09:30 Respiratory Rate 16 05/25/16 09:30 Blood Pressure 170/60 05/25/16 09:30 O2 Sat by Pulse Oximetry (%) 100 05/25/16 09:15 Constitutional: Yes: No Distress Eyes: Yes: Conjunctiva Clear Cardiovascular: Yes: Regular Rate and Rhythm, S1, S2 Respiratory: Yes: CTA Bilaterally Gastrointestinal: Yes: Normal Bowel Sounds, Soft. No: Tenderness Extremities: Yes: Other (post op dressing in place) Labs: CBC, BMP 05/24/16 06:45 05/24/16 06:45 Assessment/Plan Cellulitis/ infected ulcer L 3rd toe S/P amputation PCN/ quinolone allergies Diabetes/ diabetic neuropathy Continue ceftriaxone/ flagyl perioperatively
--- NOTE | 2016-05-25 13:20 | PN ---
Progress Note, Physician Chief Complaint: left 3 toe amputation and 3rd metatarsal head resection - Current Medication List Current Medications: Active Medications Acetaminophen (Tylenol -) 650 mg PO Q4H PRN PRN Reason: FEVER OR PAIN Amlodipine Besylate (Norvasc -) 10 mg PO DAILY [facility] Last Admin: 05/25/16 10:53 Dose: 10 mg Atorvastatin Calcium (Lipitor -) 40 mg PO HS [facility] Bupropion HCl (Wellbutrin -) 100 mg PO DAILY [facility] Last Admin: 05/25/16 10:55 Dose: 100 mg Docusate Sodium (Colace -) 100 mg PO BID PRN PRN Reason: CONSTIPATION Last Admin: 05/25/16 10:53 Dose: 100 mg Fentanyl (Sublimaze Injection -) 25 mcg IVPUSH [id number] PRN PRN Reason: PAIN Stop: 05/28/16 08:53 Glipizide (Glucotrol -) 10 mg PO BID@0700,1630 [facility] Heparin Sodium (Porcine) (Heparin -) 5,000 unit SQ BID [facility] Last Admin: 05/25/16 11:03 Dose: Not Given Ceftriaxone Sodium (Rocephin 2gm Ivpb (Pre-Docked)) 100 mls @ 200 mls/hr IVPB DAILY [facility] Last Admin: 05/25/16 09:52 Dose: 200 mls/hr Metronidazole (Flagyl 500mg Premixed Ivpb -) 100 mls @ 100 mls/hr IVPB Q8H-IV [facility] Last Admin: 05/25/16 10:52 Dose: 100 mls/hr Insulin Aspart (Novolog Vial Sliding Scale -) 1 vial SQ ACHS [facility] PRN Reason: Protocol Last Admin: 05/25/16 12:44 Dose: 2 units Labetalol HCl (Normodyne -) 200 mg PO BID [facility] Last Admin: 05/25/16 10:53 Dose: 200 mg Levothyroxine Sodium (Synthroid -) 25 mcg PO DAILY@0700 [facility] Lisinopril (Prinivil) 40 mg PO DAILY [facility] Last Admin: 05/25/16 10:53 Dose: 40 mg Non-Formulary Medication (Naloxegol Oxalate [Movantik]) 12.5 mg PO DAILY [facility] Ondansetron HCl (Zofran Injection) 4 mg IVPUSH Q6H PRN PRN Reason: NAUSEA AND/OR VOMITING Stop: 05/25/16 14:53 Oxycodone HCl (Roxicodone -) 5 mg PO Q6H PRN PRN Reason: PAIN Oxycodone HCl (Roxicodone -) 5 mg PO Q4H PRN PRN Reason: PAIN LEVEL 1-5 Ranitidine HCl (Zantac -) 300 mg PO HS [facility] - Objective Vital Signs: Vital Signs Temperature 97.7 F 05/25/16 09:30 Pulse Rate 60 05/25/16 09:30 Respiratory Rate 16 05/25/16 09:30 Blood Pressure 170/60 05/25/16 09:30 O2 Sat by Pulse Oximetry (%) 100 05/25/16 09:15 Constitutional: Yes: Calm Neck: Yes: Trachea Midline Cardiovascular: Yes: Regular Rate and Rhythm, S1, S2 Respiratory: Yes: CTA Bilaterally Gastrointestinal: Yes: Normal Bowel Sounds, Soft Edema: No Wound/Incision: Yes: Other (foot wrapped in dressing) Neurological: Yes: Alert, Oriented Labs: CBC, BMP 05/24/16 06:45 05/24/16 06:45 Problem List - Problems (1) CAD (coronary artery disease) of artery bypass graft Assessment/Plan: asa and plavix is on hold will restart once ok with surgery Code(s): I25.810 - ATHEROSCLEROSIS OF CABG W/O ANGINA PECTORIS (2) Hypothyroid Assessment/Plan: synthroid Code(s): E03.9 - HYPOTHYROIDISM, UNSPECIFIED (3) Amputated toe of left foot Assessment/Plan: dressing per podiatry iv abx Code(s): Z89.422 - ACQUIRED ABSENCE OF OTHER LEFT TOE(S) (4) HTN (hypertension) Assessment/Plan: seen by cardio same meds Code(s): I10 - ESSENTIAL (PRIMARY) HYPERTENSION
[2016-05-25] MEDS: oxyCODONE HCL 5 MG TABLET PO PRN (13:39)
[2016-05-25] MEDS ORDERED: PT OWN MED DRAWER 7, Y5N ONE (15:32)
[2016-05-25] MEDS: DOCUSATE SODIUM 100 MG CAPSULE (FP) PO SCH (21:05)
[2016-05-25] MEDS: RANITIDINE HCL 150 MG TABLET (FP) PO SCH ×2 (21:06→22:31)
[2016-05-25] MEDS: ATORVASTATIN CA 40 MG TABLET (FP) PO SCH (21:06)
[2016-05-26] MEDS: METRONIDAZOLE 500 MG PREMIXED 100 ML IVPB SCH ×3 (01:22→18:19)
[2016-05-26] MEDS: glipiZIDE 5 MG TABLET (FP) PO SCH ×2 (06:25→17:18)
[2016-05-26] MEDS: INSULIN SLIDING SCALE (NOVOLOG) 1 VIAL SQ SCH ×4 (06:25→21:20)
[2016-05-26] MEDS: LEVOTHYROXINE NA 25 MCG TABLET (FP) PO SCH (06:28)
--- NOTE | 2016-05-26 08:20 | PN ---
Progress Note (short form) - Note Progress Note: Podiatry: Seen and evaluated at bedside, NAD. Pain controlled, denies F/V/N/C/SOB/CP. S/ p L 3rd toe amputation, 3rd metatarsal head resection with bone biopsy/culture. Afebrile. VSS. RAUL: L foot: dressing C/D/I, minimal strikethrough, no active bleeding. Sutures well coapted with some ecchymosis along incision line. Packing in place. Mild periwound erythema, improving. No purulent drainage, no fluctuance, no ascending cellulitis, no signs of active infection. Minimal tenderness to palpation of wound. WBC: 9.2 OR Cultures: pending Imp: 80 year old DM F s/p L 3rd toe amputation for DFI and osteomyelitis 1. C/w IV abx per ID 2. F/u OR cultures 3. Partial WB L heel with surgical shoe 4. XR today 5. I do believe all infected bone was subsequently removed, however will f/u cultures Santi Desai DPM
--- NOTE | 2016-05-26 08:27 | PN ---
Progress Note (short form) - Note Progress Note: Anesthesia postop note 80y/o F s/p MAC for left 3rd toe amputation POD#1, aaox3, vss, pain fairly well controlled. No anesthesia complications.
[2016-05-26] MEDS: CEFTRIAXONE 100 ML IVPB SCH (09:14)
[2016-05-26] MEDS: amLODIPine BESYLATE 10 MG TABLET (FP) PO SCH (10:15)
[2016-05-26] MEDS: LISINOPRIL 20 MG TABLET (FP) PO SCH (10:15)
[2016-05-26] MEDS: LABETALOL HCL 200 MG TABLET (FP) PO SCH ×2 (10:15→21:20)
[2016-05-26] MEDS: buPROPion HCL 100 MG TABLET PO SCH (10:16)
[2016-05-26] MEDS: HEPARIN NA (PORCINE) 5,000 UNITS/ML 1ML VIAL SQ SCH ×2 (10:16→21:20)
[2016-05-26] MEDS: oxyCODONE HCL 5 MG TABLET PO PRN ×2 (10:31→21:22)
--- NOTE | 2016-05-26 12:56 | PN ---
Progress Note, Physician Chief Complaint: patient is having bM the vegetables are soft and easy to eat for her - Current Medication List Current Medications: Active Medications Acetaminophen (Tylenol -) 650 mg PO Q4H PRN PRN Reason: FEVER OR PAIN Amlodipine Besylate (Norvasc -) 10 mg PO DAILY [facility] Last Admin: 05/26/16 10:15 Dose: 10 mg Atorvastatin Calcium (Lipitor -) 40 mg PO HS [facility] Last Admin: 05/25/16 21:06 Dose: 40 mg Bupropion HCl (Wellbutrin -) 100 mg PO DAILY [facility] Last Admin: 05/26/16 10:16 Dose: 100 mg Docusate Sodium (Colace -) 300 mg PO HS [facility] Last Admin: 05/25/16 21:05 Dose: 300 mg Fentanyl (Sublimaze Injection -) 25 mcg IVPUSH [id number] PRN PRN Reason: PAIN Stop: 05/28/16 08:53 Glipizide (Glucotrol -) 10 mg PO BID@0700,1630 [facility] Last Admin: 05/26/16 06:25 Dose: 10 mg Heparin Sodium (Porcine) (Heparin -) 5,000 unit SQ BID [facility] Last Admin: 05/26/16 10:16 Dose: Not Given Ceftriaxone Sodium (Rocephin 2gm Ivpb (Pre-Docked)) 100 mls @ 200 mls/hr IVPB DAILY [facility] Last Admin: 05/26/16 09:14 Dose: 200 mls/hr Metronidazole (Flagyl 500mg Premixed Ivpb -) 100 mls @ 100 mls/hr IVPB Q8H-IV [facility] Last Admin: 05/26/16 10:15 Dose: 100 mls/hr Insulin Aspart (Novolog Vial Sliding Scale -) 1 vial SQ ACHS [facility] PRN Reason: Protocol Last Admin: 05/26/16 06:25 Dose: Not Given Labetalol HCl (Normodyne -) 200 mg PO BID [facility] Last Admin: 05/26/16 10:15 Dose: 200 mg Levothyroxine Sodium (Synthroid -) 25 mcg PO DAILY@0700 [facility] Last Admin: 05/26/16 06:28 Dose: 25 mcg Lisinopril (Prinivil) 40 mg PO DAILY [facility] Last Admin: 05/26/16 10:15 Dose: 40 mg Oxycodone HCl (Roxicodone -) 5 mg PO Q6H PRN PRN Reason: PAIN Last Admin: 05/26/16 10:31 Dose: 5 mg Oxycodone HCl (Roxicodone -) 5 mg PO Q4H PRN PRN Reason: PAIN LEVEL 1-5 Last Admin: 05/25/16 20:54 Dose: 5 mg Ranitidine HCl (Zantac -) 300 mg PO HS [facility] Last Admin: 05/25/16 22:31 Dose: 300 mg - Objective Vital Signs: Vital Signs Temperature 97.9 F 05/26/16 06:00 Pulse Rate 63 05/26/16 06:00 Respiratory Rate 18 05/26/16 06:00 Blood Pressure 149/60 05/26/16 06:00 O2 Sat by Pulse Oximetry (%) 100 05/25/16 21:00 Constitutional: Yes: Calm Neck: Yes: Trachea Midline Cardiovascular: Yes: Regular Rate and Rhythm, S1, S2 Respiratory: Yes: CTA Bilaterally Gastrointestinal: Yes: Soft Edema: No Wound/Incision: Yes: Other (left foot wound dressing intact was changed today) Neurological: Yes: Alert, Oriented Labs: CBC, BMP 05/24/16 06:45 05/24/16 06:45 Problem List - Problems (1) CAD (coronary artery disease) of artery bypass graft Assessment/Plan: asa and plavix will restart Code(s): I25.810 - ATHEROSCLEROSIS OF CABG W/O ANGINA PECTORIS (2) Hypothyroid Assessment/Plan: synthroid check tsh Code(s): E03.9 - HYPOTHYROIDISM, UNSPECIFIED (3) Amputated toe of left foot Assessment/Plan: dressing per podiatry iv abx Microbiology 05/25/16 09:00 Tissue-Other Gram Stain - Final 05/25/16 09:00 Bone Gram Stain - Final 03/20/15 17:00 Bone Gram Stain - Final 03/20/15 17:00 Bone Tissue Culture - Final Strep Agalactiae Group B 05/25/16 09:00 Tissue-Other Tissue Culture - Preliminary Staphylococcus Species 05/25/16 09:00 Bone Tissue Culture - Preliminary NO AEROBIC GROWTH, 24 HRS Code(s): Z89.422 - ACQUIRED ABSENCE OF OTHER LEFT TOE(S) (4) HTN (hypertension) Assessment/Plan: seen by cardio same meds Code(s): I10 - ESSENTIAL (PRIMARY) HYPERTENSION (5) Constipation Assessment/Plan: improved since hospital admission as diet here is softer for patient to eat Code(s): K59.00 - CONSTIPATION, UNSPECIFIED (6) Diabetes Assessment/Plan: bgm sliding scale endo hga1c 8.4 will add on medication Code(s): E11.9 - TYPE 2 DIABETES MELLITUS WITHOUT COMPLICATIONS Qualifiers: Diabetes mellitus type: type 2 Diabetes mellitus complication status: with circulatory complication Diabetes mellitus complication detail: with other circulatory complications
--- NOTE | 2016-05-26 13:42 | PN ---
Progress Note, Physician History of Present Illness: C/O foot pain relieved with analgesics No fever/ chills Operative wound c/s growing staph sp. - Current Medication List Current Medications: Active Medications Acetaminophen (Tylenol -) 650 mg PO Q4H PRN PRN Reason: FEVER OR PAIN Amlodipine Besylate (Norvasc -) 10 mg PO DAILY [facility] Last Admin: 05/26/16 10:15 Dose: 10 mg Aspirin (Ecotrin -) 81 mg PO DAILY [facility] Atorvastatin Calcium (Lipitor -) 40 mg PO HS [facility] Last Admin: 05/25/16 21:06 Dose: 40 mg Bupropion HCl (Wellbutrin -) 100 mg PO DAILY [facility] Last Admin: 05/26/16 10:16 Dose: 100 mg Clopidogrel Bisulfate (Plavix -) 75 mg PO DAILY [facility] Docusate Sodium (Colace -) 300 mg PO HS [facility] Last Admin: 05/25/16 21:05 Dose: 300 mg Fentanyl (Sublimaze Injection -) 25 mcg IVPUSH [id number] PRN PRN Reason: PAIN Stop: 05/28/16 08:53 Glipizide (Glucotrol -) 10 mg PO BID@0700,1630 [facility] Last Admin: 05/26/16 06:25 Dose: 10 mg Heparin Sodium (Porcine) (Heparin -) 5,000 unit SQ BID [facility] Last Admin: 05/26/16 10:16 Dose: Not Given Ceftriaxone Sodium (Rocephin 2gm Ivpb (Pre-Docked)) 100 mls @ 200 mls/hr IVPB DAILY [facility] Last Admin: 05/26/16 09:14 Dose: 200 mls/hr Metronidazole (Flagyl 500mg Premixed Ivpb -) 100 mls @ 100 mls/hr IVPB Q8H-IV [facility] Last Admin: 05/26/16 10:15 Dose: 100 mls/hr Insulin Aspart (Novolog Vial Sliding Scale -) 1 vial SQ ACHS [facility] PRN Reason: Protocol Last Admin: 05/26/16 06:25 Dose: Not Given Labetalol HCl (Normodyne -) 200 mg PO BID [facility] Last Admin: 05/26/16 10:15 Dose: 200 mg Levothyroxine Sodium (Synthroid -) 25 mcg PO DAILY@0700 [facility] Last Admin: 05/26/16 06:28 Dose: 25 mcg Lisinopril (Prinivil) 40 mg PO DAILY [facility] Last Admin: 05/26/16 10:15 Dose: 40 mg Oxycodone HCl (Roxicodone -) 5 mg PO Q6H PRN PRN Reason: PAIN Last Admin: 05/26/16 10:31 Dose: 5 mg Ranitidine HCl (Zantac -) 300 mg PO HS [facility] Last Admin: 05/25/16 22:31 Dose: 300 mg - Objective Vital Signs: Vital Signs Temperature 97.9 F 05/26/16 06:00 Pulse Rate 63 05/26/16 06:00 Respiratory Rate 18 05/26/16 06:00 Blood Pressure 149/60 05/26/16 06:00 O2 Sat by Pulse Oximetry (%) 100 05/25/16 21:00 Constitutional: Yes: No Distress, Thin Cardiovascular: Yes: Regular Rate and Rhythm, S1, S2 Respiratory: Yes: CTA Bilaterally Gastrointestinal: Yes: Normal Bowel Sounds, Soft. No: Tenderness Extremities: Yes: Other (surgical wound with sutures in place. no wound drainage + erythema, base of toe exteding to dorsum of foot) Labs: CBC, BMP 05/24/16 06:45 05/24/16 06:45 Assessment/Plan Cellulitis/ infected ulcer L 3rd toe S/P amputation PCN/ quinolone allergies Diabetes/ diabetic neuropathy Continue ceftriaxone/ flagyl Resume vancomycin pending wound c/s
--- NOTE | 2016-05-26 14:04 | PATH ---
Surgical Pathology Report Patient Name: COSME HITCHCOCK Med. Rec. #: [id number] /Age/Gender: 1935 (Age: 80) / F Account: [id number] Location: [facility] MED/SURG Taken: 05/24/2016 Received: 05/25/2016 Reported: 05/26/2016 Physicians: MATTHIAS Palmer M.D. Specimen(s) Received A: LEFT 3RD METATARSAL HEAD & TOE B: LEFT 3RD PROXIMAL BONE Clinical History Diabetic foot ulcer/osteomyelitis Final Diagnosis A. THIRD TOE AND METATARSAL HEAD, LEFT, AMPUTATION: ULCERATED AND NECROTIC SKIN AND UNDERLYING SOFT TISSUE WITH ACUTE NECROTIZING INFLAMMATION AND GANGRENOUS NECROSIS. UNDERLYING BONE WITH ACUTE OSTEOMYELITIS. SKIN AND SOFT TISSUE AT RESECTION MARGIN APPEAR VIABLE. BONE AT RESECTION MARGIN APPEARS VIABLE WITH REACTIVE CHANGES. SEPARATE FRAGMENT OF BONE (METATARSAL HEAD) IS VIABLE WITH REACTIVE CHANGES. B. LEFT THIRD PROXIMAL BONE, EXCISION: VIABLE BONE WITH NO EVIDENCE OF OSTEOMYELITIS. Electronically Signed Simone Jacob M.D. Gross Description A. Received in formalin labeled "left third metatarsal head and toe" is a 4.0 x 2.0 x 2.0 cm toe amputation specimen. The epidermal surface displays a 1.7 x 1.1 cm talbot, ulcerated lesion on the dorsal aspect of the toe at 1.6 cm from the skin and soft tissue margin of resection. The lesion extends to and possibly involves the underlying bone. Separately received within the same container is a 1.6 x 1.4 x 1.0 cm talbot, irregular portion of bone. White Sugar Syrup Operator sections are submitted in 4 cassettes as follows: 1-lesion with underlying bone, following decalcification; 2-skin and soft tissue margin of resection; 3-bone margin, following decalcification; 4-full thickness section of separately received portion of bone, following decalcification. B. Received in formalin labeled "left third proximal bone" is a 0.7 x 0.3 x 0.2 cm talbot, irregular bone fragment. The specimen is submitted in toto in one cassette, following decalcification. 05/25/201605/25/2016
[2016-05-26] MEDS: VANCOMYCIN 1 GRAM (PRE-DOCKED) 250 ML IVPB SCH (16:16)
[2016-05-26] MEDS ORDERED: ACETAMINOPHEN 325 MG TABLET (FP) PO ONE (16:32)
--- NOTE | 2016-05-26 20:29 | CONSULT ---
Consult Consult Specialty:: endocrine Referred by:: dr.iyad valencia Reason for Consultation:: dm/hypothyrodism - History of Present Illness Chief Complaint: higher sugars since foot infection History of Present Illness: 80 old female, with a significant past medical history of hypertension, hyperlipidemia, diabetes with history of ulcers and diabetic neuropathy, anemia , pneumonia, acute bronchitis, CHF (left ventricular failure), CAD status post CABG, [place], and thyroid disease, who presents to the emergency department with non healing left wound. she has been seen by podiatry,she has had elevated sugars urine frequency,and increased thirst - Past Medical History Cardio/Vascular: Yes: CAD, HTN, Hyperlipdemia, [place] (NSTEMI 04/2014) Infectious Disease: Yes: Other (history of osteo of right foot with prior abscess) Endocrine: Yes: Diabetes Mellitus - Past Surgical History Past Surgical History: Yes: CABG (05/2014), Hysterectomy (partial), Stent (2003) Additional Surgical History: Left 2nd toe amputation in 03/2015 - Alcohol/Substance Use Hx Alcohol Use: No History of Substance Use: reports: None - Smoking History Smoking history: Former smoker Have you smoked in the past 12 months: No Aproximately how many cigarettes per day: 0 If you are a former smoker, when did you quit?: 50 years - Social History Usual Living Arrangement: Half-Way ADL: Support Services (uses walker) History of Recent Travel: No Home Medications - Allergies Allergies/Adverse Reactions: Allergies Allergy/AdvReac Type Severity Reaction Status Date / Time levofloxacin [From Levaquin] Allergy Verified 05/23/16 19:05 Penicillins Allergy Rash Verified 05/23/16 13:16 chocolate AdvReac Unknown Hives Uncoded 05/23/16 13:16 - Home Medications Home Medications: Ambulatory Orders Aspirin Coated [Ecotrin -] 81 mg PO DAILY #30 tablet.ec 08/06/14 Atorvastatin Ca [Lipitor] 40 mg PO HS #1 tablet 08/06/14 Bupropion HCl [Wellbutrin -] 100 mg PO DAILY #30 tablet 08/06/14 Clopidogrel Bisulfate [Plavix -] 75 mg PO DAILY #30 tablet 08/06/14 Glipizide [Glucotrol -] 10 mg PO BID@0700,1630 #60 tablet 08/06/14 Labetalol HCl [Normodyne -] 200 mg PO BID #1 tablet 06/04/15 Levothyroxine [Synthroid -] 25 mcg PO DAILY #30 tablet 08/06/14 Amlodipine Besylate 10 mg PO DAILY 12/17/15 Famotidine [Pepcid -] 40 mg PO HS 12/17/15 Fenton-3 Fatty Acids/Fish Oil [Fish Oil 1,000 mg Softgel] 1 each PO DAILY Lisinopril [Prinivil] 20 mg PO DAILY tablet 12/23/15 Acetaminophen [Tylenol] 650 mg PO PRN PRN 03/20/16 Insulin Regular [NOVOLIN R VIAL *IVPUSH / ER / ICU Only*] 0 units SQ BIDAC 03/20 Naloxegol Oxalate [Movantik] 12.5 mg PO DAILY 03/20/16 Oxycodone HCl 5 mg PO HS 03/20/16 Clindamycin [Cleocin -] 1 tab PO TID 05/23/16 Family Disease History - Family Disease History Family Disease History: Diabetes: Father, Other: Mother ( during childbirth) Review of Systems - Review of Systems Constitutional: reports: Lethargy, Unintentional Wgt. Loss Eyes: reports: No Symptoms HENT: reports: No Symptoms Neck: reports: No Symptoms Cardiovascular: reports: No Symptoms Respiratory: reports: SOB on Exertion Gastrointestinal: reports: No Symptoms Genitourinary: reports: Frequency Breasts: reports: No Symptoms Reported Musculoskeletal: reports: Muscle Pain, Muscle Cramps, Muscle Weakness Integumentary: reports: No Symptoms Neurological: reports: Numbness, Unsteady Gait Endocrine: reports: Unexplained Weight Loss Physical Exam Vital Signs: Vital Signs Temperature 101.7 F H 05/26/16 16:55 Pulse Rate 77 05/26/16 16:55 Respiratory Rate 20 05/26/16 16:55 Blood Pressure 160/79 05/26/16 16:55 O2 Sat by Pulse Oximetry (%) 99 05/26/16 10:00 Constitutional: Yes: Calm Eyes: Yes: EOM Intact HENT: Yes: Normocephalic Neck: Yes: Thyromegaly Cardiovascular: Yes: Regular Rate and Rhythm Respiratory: Yes: CTA Bilaterally Gastrointestinal: Yes: Normal Bowel Sounds ...Rectal Exam: Yes: Deferred Renal/: Yes: WNL Breast(s): Yes: WNL Musculoskeletal: Yes: Muscle Pain, Muscle Weakness Extremities: Yes: WNL Edema: No Peripheral Pulses WNL: Yes Integumentary: Yes: Venous Stasis Changes Wound/Incision: Yes: Dressing Dry and Intact, Draining Neurological: Yes: Alert, Oriented Labs: CBC, BMP 05/24/16 06:45 05/24/16 06:45 Problem List - Problems (1) Diabetes Code(s): E11.9 - TYPE 2 DIABETES MELLITUS WITHOUT COMPLICATIONS Qualifiers: Diabetes mellitus type: type 2 Diabetes mellitus complication status: with circulatory complication Diabetes mellitus complication detail: with other circulatory complications (2) Diabetic foot infection Code(s): E11.69 - TYPE 2 DIABETES MELLITUS WITH OTHER SPECIFIED COMPLICATION L08.9 - LOCAL INFECTION OF THE SKIN AND SUBCUTANEOUS TISSUE, UNSP (3) Hypothyroid Code(s): E03.9 - HYPOTHYROIDISM, UNSPECIFIED Assessment/Plan Current Active Problems CAD (coronary artery disease) of artery bypass graft (Acute) Diabetes (Acute) Diabetic foot infection (Acute) Diarrhea (Acute) Dizziness (Acute) HX: anticoagulation (Acute) Hypothyroid (Acute) Osteomyelitis of ankle or foot, acute (Acute) S/P CABG (coronary artery bypass graft) (Acute) Laboratory Results - last 24 hr 05/26/16 05:41 POC Glucometer 113 Laboratory Results - last 24 hr Laboratory Tests 05/23/16 05/24/16 05/24/16 15:15 06:00 06:45 WBC 9.5 9.2 RBC 3.71 Hgb 10.7 Hct 32.2 L MCV 86.9 87.4 MCHC 34.0 RDW 13.5 13.4 Plt Count 295 D 255 Sodium Chloride Carbon Dioxide Anion Gap Creatinine POC Glucometer Hemoglobin A1c % 8.4 H D 05/24/16 05/24/16 05/24/16 06:45 11:50 17:45 WBC RBC Hgb Hct MCV MCHC RDW Plt Count Sodium 139 Chloride 102 Carbon Dioxide 25 Anion Gap 12 Creatinine 1.1 H POC Glucometer 119 109 Hemoglobin A1c % 05/24/16 05/25/16 21:04 06:42 WBC RBC Hgb Hct MCV MCHC RDW Plt Count Sodium Chloride Carbon Dioxide Anion Gap Creatinine POC Glucometer 206 116 Hemoglobin A1c % plan: bgm ac hs novolog coverage continue synthroid 25 mcg daily cktsh free t4
[2016-05-26] MEDS: DOCUSATE SODIUM 100 MG CAPSULE (FP) PO SCH (21:19)
[2016-05-26] MEDS: RANITIDINE HCL 150 MG TABLET (FP) PO SCH (21:20)
[2016-05-26] MEDS: ATORVASTATIN CA 40 MG TABLET (FP) PO SCH (21:20)
[2016-05-27] MEDS: METRONIDAZOLE 500 MG PREMIXED 100 ML IVPB SCH ×2 (02:35→13:38)
[2016-05-27] MEDS: INSULIN SLIDING SCALE (NOVOLOG) 1 VIAL SQ SCH ×4 (06:28→21:16)
[2016-05-27] MEDS: glipiZIDE 5 MG TABLET (FP) PO SCH ×2 (06:28→18:53)
[2016-05-27] MEDS: LEVOTHYROXINE NA 25 MCG TABLET (FP) PO SCH (06:32)
[2016-05-27 08:27] LABS: BASOPHIL 0.5 % (0-2.0); EOSINOPHIL 2.3 % (0-4.5); MCH 29.4 pg (25.7-33.7); MCHC 33.6 g/dl (32.0-36.0); MEAN CELL VOLUME 87.4 fl (80-96); MEAN PLT VOLUME 8.5 fl (7.5-11.1); PLATELET COUNT 233 K/MM3 (134-434); RDW 13.6 % (11.6-15.6); WHITE BLOOD COUNT 9.5 K/mm3 (4.0-10.0)
[2016-05-27 08:49] LABS: CHOLESTEROL 119 mg/dL (50-200); LDL CHOLESTEROL (ONLY SJRH) 57 mg/dL (5-100)
[2016-05-27 09:07] LABS: BILIRUBIN,TOTAL 0.4 mg/dL (0.2-1.0); THYROID STIMULATING HORMONE 1.17 uIU/ml (0.358-3.74); TOT PROT 6.5 g/dl (6.4-8.2)
--- NOTE | 2016-05-27 10:48 | PN ---
Progress Note, Physician History of Present Illness: Reports less foot pain No recurrent fever Wound c/s MRSA; now on vancomycin - Current Medication List Current Medications: Active Medications Acetaminophen (Tylenol -) 650 mg PO Q4H PRN PRN Reason: FEVER OR PAIN Amlodipine Besylate (Norvasc -) 10 mg PO DAILY [facility] Last Admin: 05/26/16 10:15 Dose: 10 mg Aspirin (Ecotrin -) 81 mg PO DAILY [facility] Atorvastatin Calcium (Lipitor -) 40 mg PO HS [facility] Last Admin: 05/26/16 21:20 Dose: 40 mg Bupropion HCl (Wellbutrin -) 100 mg PO DAILY [facility] Last Admin: 05/26/16 10:16 Dose: 100 mg Clopidogrel Bisulfate (Plavix -) 75 mg PO DAILY [facility] Docusate Sodium (Colace -) 300 mg PO HS [facility] Last Admin: 05/26/16 21:19 Dose: 300 mg Fentanyl (Sublimaze Injection -) 25 mcg IVPUSH [id number] PRN PRN Reason: PAIN Stop: 05/28/16 08:53 Glipizide (Glucotrol -) 10 mg PO BID@0700,1630 [facility] Last Admin: 05/27/16 06:28 Dose: 10 mg Heparin Sodium (Porcine) (Heparin -) 5,000 unit SQ BID [facility] Last Admin: 05/26/16 21:20 Dose: 5,000 unit Vancomycin HCl (Vancomycin (Pre-Docked)) 250 mls @ 166.667 mls/hr IVPB Q24H [facility] Last Admin: 05/26/16 16:16 Dose: 166.667 mls/hr Insulin Aspart (Novolog Vial Sliding Scale -) 1 vial SQ ACHS [facility] PRN Reason: Protocol Last Admin: 05/27/16 06:28 Dose: Not Given Labetalol HCl (Normodyne -) 200 mg PO BID [facility] Last Admin: 05/26/16 21:20 Dose: 200 mg Levothyroxine Sodium (Synthroid -) 25 mcg PO DAILY@0700 [facility] Last Admin: 05/27/16 06:32 Dose: 25 mcg Lisinopril (Prinivil) 40 mg PO DAILY [facility] Last Admin: 05/26/16 10:15 Dose: 40 mg Oxycodone HCl (Roxicodone -) 5 mg PO Q6H PRN PRN Reason: PAIN Last Admin: 05/26/16 21:22 Dose: 5 mg Ranitidine HCl (Zantac -) 300 mg PO HS [facility] Last Admin: 05/26/16 21:20 Dose: 300 mg - Objective Vital Signs: Vital Signs Temperature 98.9 F 05/27/16 06:00 Pulse Rate 61 05/27/16 06:00 Respiratory Rate 18 05/27/16 06:00 Blood Pressure 146/58 05/27/16 06:00 O2 Sat by Pulse Oximetry (%) 98 05/26/16 21:00 Constitutional: Yes: No Distress Eyes: Yes: Conjunctiva Clear Cardiovascular: Yes: Regular Rate and Rhythm, S1, S2 Respiratory: Yes: CTA Bilaterally Gastrointestinal: Yes: Normal Bowel Sounds, Soft. No: Tenderness Extremities: Yes: Other (decreased erythema at toe amputation site) Labs: CBC, BMP 05/27/16 06:00 05/27/16 06:00 Assessment/Plan Cellulitis/ infected ulcer L 3rd toe S/P amputation + wound c/s MRSA PCN/ quinolone allergies Diabetes/ diabetic neuropathy Discontinue ceftriaxone/ flagyl Continue vancomycin Local wound care
[2016-05-27] MEDS: LISINOPRIL 20 MG TABLET (FP) PO SCH (11:34)
[2016-05-27] MEDS: amLODIPine BESYLATE 10 MG TABLET (FP) PO SCH (11:35)
[2016-05-27] MEDS: LABETALOL HCL 200 MG TABLET (FP) PO SCH ×2 (11:35→21:16)
[2016-05-27] MEDS: CLOPIDOGREL BISULFATE 75 MG TABLET (FP) PO SCH (11:35)
[2016-05-27] MEDS: ASPIRIN COATED 81 MG TABLET.EC PO SCH (11:36)
[2016-05-27] MEDS: HEPARIN NA (PORCINE) 5,000 UNITS/ML 1ML VIAL SQ SCH ×2 (11:36→21:12)
[2016-05-27] MEDS: buPROPion HCL 100 MG TABLET PO SCH (11:37)
--- NOTE | 2016-05-27 12:14 | PN ---
Progress Note, Physician Chief Complaint: NO COMPLAINTS IN [employer] - Current Medication List Current Medications: Active Medications Acetaminophen (Tylenol -) 650 mg PO Q4H PRN PRN Reason: FEVER OR PAIN Amlodipine Besylate (Norvasc -) 10 mg PO DAILY [facility] Last Admin: 05/27/16 11:35 Dose: 10 mg Aspirin (Ecotrin -) 81 mg PO DAILY [facility] Last Admin: 05/27/16 11:36 Dose: 81 mg Atorvastatin Calcium (Lipitor -) 40 mg PO HS [facility] Last Admin: 05/26/16 21:20 Dose: 40 mg Bupropion HCl (Wellbutrin -) 100 mg PO DAILY [facility] Last Admin: 05/27/16 11:37 Dose: 100 mg Clopidogrel Bisulfate (Plavix -) 75 mg PO DAILY [facility] Last Admin: 05/27/16 11:35 Dose: 75 mg Docusate Sodium (Colace -) 300 mg PO HS [facility] Last Admin: 05/26/16 21:19 Dose: 300 mg Fentanyl (Sublimaze Injection -) 25 mcg IVPUSH [id number] PRN PRN Reason: PAIN Stop: 05/28/16 08:53 Glipizide (Glucotrol -) 10 mg PO BID@0700,1630 [facility] Last Admin: 05/27/16 06:28 Dose: 10 mg Heparin Sodium (Porcine) (Heparin -) 5,000 unit SQ BID [facility] Last Admin: 05/27/16 11:36 Dose: 5,000 unit Vancomycin HCl (Vancomycin (Pre-Docked)) 250 mls @ 166.667 mls/hr IVPB Q24H [facility] Last Admin: 05/26/16 16:16 Dose: 166.667 mls/hr Insulin Aspart (Novolog Vial Sliding Scale -) 1 vial SQ ACHS [facility] PRN Reason: Protocol Last Admin: 05/27/16 06:28 Dose: Not Given Labetalol HCl (Normodyne -) 200 mg PO BID [facility] Last Admin: 05/27/16 11:35 Dose: 200 mg Levothyroxine Sodium (Synthroid -) 25 mcg PO DAILY@0700 [facility] Last Admin: 05/27/16 06:32 Dose: 25 mcg Lisinopril (Prinivil) 40 mg PO DAILY [facility] Last Admin: 05/27/16 11:34 Dose: 40 mg Oxycodone HCl (Roxicodone -) 5 mg PO Q6H PRN PRN Reason: PAIN Last Admin: 05/26/16 21:22 Dose: 5 mg Ranitidine HCl (Zantac -) 300 mg PO HS [facility] Last Admin: 05/26/16 21:20 Dose: 300 mg - Objective Vital Signs: Vital Signs Temperature 98.9 F 05/27/16 06:00 Pulse Rate 61 05/27/16 06:00 Respiratory Rate 18 05/27/16 06:00 Blood Pressure 146/58 05/27/16 06:00 O2 Sat by Pulse Oximetry (%) 98 05/26/16 21:00 Constitutional: Yes: Calm Neck: Yes: WNL Cardiovascular: Yes: WNL Respiratory: Yes: WNL Gastrointestinal: Yes: WNL Edema: No Wound/Incision: Yes: Dressing Dry and Intact Labs: CBC, BMP 05/27/16 06:00 05/27/16 06:00 Problem List - Problems (1) CAD (coronary artery disease) of artery bypass graft Code(s): I25.810 - ATHEROSCLEROSIS OF CABG W/O ANGINA PECTORIS (2) Diabetes Code(s): E11.9 - TYPE 2 DIABETES MELLITUS WITHOUT COMPLICATIONS Qualifiers: Diabetes mellitus type: type 2 Diabetes mellitus complication status: with circulatory complication Diabetes mellitus complication detail: with other circulatory complications (3) Diabetic foot infection Code(s): E11.69 - TYPE 2 DIABETES MELLITUS WITH OTHER SPECIFIED COMPLICATION L08.9 - LOCAL INFECTION OF THE SKIN AND SUBCUTANEOUS TISSUE, UNSP (4) Hypothyroid Code(s): E03.9 - HYPOTHYROIDISM, UNSPECIFIED (5) HTN (hypertension) Code(s): I10 - ESSENTIAL (PRIMARY) HYPERTENSION Assessment/Plan (1) CAD (coronary artery disease) of artery bypass graft Assessment/Plan: asa and plavix will restart Code(s): I25.810 - ATHEROSCLEROSIS OF CABG W/O ANGINA PECTORIS (2) Hypothyroid Assessment/Plan: synthroid check tsh Code(s): E03.9 - HYPOTHYROIDISM, UNSPECIFIED (3) Amputated toe of left foot Assessment/Plan: dressing per podiatry iv abx Code(s): Z89.422 - ACQUIRED ABSENCE OF OTHER LEFT TOE(S) (4) HTN (hypertension) Assessment/Plan: seen by cardio same meds Code(s): I10 - ESSENTIAL (PRIMARY) HYPERTENSION (5) Constipation Assessment/Plan: improved since hospital admission as diet here is softer for patient to eat Code(s): K59.00 - CONSTIPATION, UNSPECIFIED (6) Diabetes Assessment/Plan: bgm sliding scale endo hga1c 8.4 will add on medication Code(s): E11.9 - TYPE 2 DIABETES MELLITUS WITHOUT COMPLICATIONS Qualifiers: Diabetes mellitus type: type 2 Diabetes mellitus complication status: with circulatory complication Diabetes mellitus complication detail: with other circulatory complications ACCOUNT COLLECTOR FM
[2016-05-27] MEDS: ACETAMINOPHEN 325 MG TABLET (FP) PO PRN (13:13)
[2016-05-27] MEDS: CEFTRIAXONE 100 ML IVPB SCH (13:38)
--- NOTE | 2016-05-27 14:28 | PN ---
Progress Note (short form) - Note Progress Note: Podiatry: Seen and evaluated at bedside, NAD. Pain well controlled, denies F/V/N/C/SOB/ Cp. Reports having fevers last night, highest being 101 F. Currently afebrile , VSS. RAUL: L foot: dressing C/D/I, no active bleeding, no strikethrough. Sutures well coapted, no dehiscence. Small area where packing placed draining sanguinous. No purulent drainage, surrounding erythema improving, no soft tissue crepitus, no fluctuance, no streaking cellulitis, no signs of acute infection. OR Soft tissue cx: MRSA OR Bone Cx: no growth x 48 hrs Imp: 80 year old DM F s/p L 3rd toe amputation, 3rd met head resection with bone biopsy for acute osteomyelitis 1. Abx per ID 2. DSD L foot 3. Partial WB L foot with surgical shoe 4. OR bone culture negative, soft tissue culture positive. Will likely need short course oral abx, however proximal bone culture/biopsy so far negative 5. Will follow Santi Desai DPM
[2016-05-27] MEDS: VANCOMYCIN 1 GRAM (PRE-DOCKED) 250 ML IVPB SCH (14:38)
[2016-05-27] MEDS ORDERED: PT OWN MED DRAWER 7, Y5N ONE (19:09)
[2016-05-27] MEDS: DOCUSATE SODIUM 100 MG CAPSULE (FP) PO SCH (21:11)
[2016-05-27] MEDS: ATORVASTATIN CA 40 MG TABLET (FP) PO SCH (21:16)
[2016-05-27] MEDS: RANITIDINE HCL 150 MG TABLET (FP) PO SCH (21:16)
[2016-05-27] MEDS: oxyCODONE HCL 5 MG TABLET PO PRN (21:16)
[2016-05-28] MEDS: INSULIN SLIDING SCALE (NOVOLOG) 1 VIAL SQ SCH ×4 (06:22→20:59)
[2016-05-28] MEDS: LEVOTHYROXINE NA 25 MCG TABLET (FP) PO SCH (06:28)
[2016-05-28] MEDS: glipiZIDE 5 MG TABLET (FP) PO SCH ×2 (06:28→17:00)
[2016-05-28 08:27] LABS: BASOPHIL 0.6 % (0-2.0); EOSINOPHIL 2.6 % (0-4.5); MCH 29.4 pg (25.7-33.7); MCHC 33.7 g/dl (32.0-36.0); MEAN CELL VOLUME 87.1 fl (80-96); MEAN PLT VOLUME 8.3 fl (7.5-11.1); NEUTROPHILS 87.4 % (42.8-82.8); PLATELET COUNT 251 K/MM3 (134-434); RDW 13.4 % (11.6-15.6); WHITE BLOOD COUNT 10.7 K/mm3 (4.0-10.0)
[2016-05-28 09:00] LABS: ANION GAP 11 (8-16); CALCIUM 8.3 mg/dL (8.5-10.1); CO2 24 mmol/L (21-32); CREATININE 0.9 mg/dL (0.55-1.02); GLUCOSE,RANDOM 68 mg/dL (74-106); SGPT/ALT 15 U/L (12-78)
[2016-05-28 09:02] LABS: ALK PHOS 89 U/L (45-117); BILIRUBIN,TOTAL 0.5 mg/dL (0.2-1.0); TOT PROT 6.7 g/dl (6.4-8.2)
[2016-05-28 09:03] LABS: SGOT/AST 26 U/L (15-37)
[2016-05-28] MEDS ORDERED: PT OWN MED DRAWER 7, Y5N ONE (09:47)
[2016-05-28] MEDS: amLODIPine BESYLATE 10 MG TABLET (FP) PO SCH (09:50)
[2016-05-28] MEDS: LISINOPRIL 20 MG TABLET (FP) PO SCH (09:50)
[2016-05-28] MEDS: CLOPIDOGREL BISULFATE 75 MG TABLET (FP) PO SCH (09:50)
[2016-05-28] MEDS: ASPIRIN COATED 81 MG TABLET.EC PO SCH (09:50)
[2016-05-28] MEDS: HEPARIN NA (PORCINE) 5,000 UNITS/ML 1ML VIAL SQ SCH ×2 (09:50→20:59)
[2016-05-28] MEDS: LABETALOL HCL 200 MG TABLET (FP) PO SCH ×2 (09:50→20:59)
[2016-05-28] MEDS: buPROPion HCL 100 MG TABLET PO SCH (09:50)
[2016-05-28] MEDS: oxyCODONE HCL 5 MG TABLET PO PRN (10:36)
--- NOTE | 2016-05-28 10:38 | PN ---
Progress Note, Physician Chief Complaint: NO COMPLAINTS - Current Medication List Current Medications: Active Medications Acetaminophen (Tylenol -) 650 mg PO Q4H PRN PRN Reason: FEVER OR PAIN Last Admin: 05/27/16 13:13 Dose: 650 mg Amlodipine Besylate (Norvasc -) 10 mg PO DAILY [facility] Last Admin: 05/28/16 09:50 Dose: 10 mg Aspirin (Ecotrin -) 81 mg PO DAILY [facility] Last Admin: 05/28/16 09:50 Dose: 81 mg Atorvastatin Calcium (Lipitor -) 40 mg PO HS [facility] Last Admin: 05/27/16 21:16 Dose: 40 mg Bupropion HCl (Wellbutrin -) 100 mg PO DAILY [facility] Last Admin: 05/28/16 09:50 Dose: 100 mg Clopidogrel Bisulfate (Plavix -) 75 mg PO DAILY [facility] Last Admin: 05/28/16 09:50 Dose: 75 mg Docusate Sodium (Colace -) 300 mg PO HS [facility] Last Admin: 05/27/16 21:11 Dose: Not Given Glipizide (Glucotrol -) 10 mg PO BID@0700,1630 [facility] Last Admin: 05/28/16 06:28 Dose: 10 mg Heparin Sodium (Porcine) (Heparin -) 5,000 unit SQ BID [facility] Last Admin: 05/28/16 09:50 Dose: Not Given Vancomycin HCl (Vancomycin (Pre-Docked)) 250 mls @ 166.667 mls/hr IVPB Q24H [facility] Last Admin: 05/27/16 14:38 Dose: 166.667 mls/hr Insulin Aspart (Novolog Vial Sliding Scale -) 1 vial SQ ACHS [facility] PRN Reason: Protocol Last Admin: 05/28/16 06:22 Dose: Not Given Labetalol HCl (Normodyne -) 200 mg PO BID [facility] Last Admin: 05/28/16 09:50 Dose: 200 mg Levothyroxine Sodium (Synthroid -) 25 mcg PO DAILY@0700 [facility] Last Admin: 05/28/16 06:28 Dose: 25 mcg Lisinopril (Prinivil) 40 mg PO DAILY [facility] Last Admin: 05/28/16 09:50 Dose: 40 mg Oxycodone HCl (Roxicodone -) 5 mg PO Q6H PRN PRN Reason: PAIN Last Admin: 03/25/17 21:16 Dose: 5 mg Ranitidine HCl (Zantac -) 300 mg PO HS [facility] Last Admin: 05/27/16 21:16 Dose: 300 mg - Objective Vital Signs: Vital Signs Temperature 98.3 F 05/28/16 08:35 Pulse Rate 70 05/28/16 08:35 Respiratory Rate 18 05/28/16 08:35 Blood Pressure 147/63 05/28/16 08:35 O2 Sat by Pulse Oximetry (%) 98 05/27/16 21:00 Constitutional: Yes: Calm Neck: Yes: WNL Cardiovascular: Yes: WNL Respiratory: Yes: WNL Gastrointestinal: Yes: WNL Edema: No Wound/Incision: Yes: Dressing Dry and Intact Labs: CBC, BMP 05/28/16 06:30 05/28/16 06:30 Problem List - Problems (1) CAD (coronary artery disease) of artery bypass graft Code(s): I25.810 - ATHEROSCLEROSIS OF CABG W/O ANGINA PECTORIS (2) Diabetes Code(s): E11.9 - TYPE 2 DIABETES MELLITUS WITHOUT COMPLICATIONS Qualifiers: Diabetes mellitus type: type 2 Diabetes mellitus complication status: with circulatory complication Diabetes mellitus complication detail: with other circulatory complications (3) Diabetic foot infection Code(s): E11.69 - TYPE 2 DIABETES MELLITUS WITH OTHER SPECIFIED COMPLICATION L08.9 - LOCAL INFECTION OF THE SKIN AND SUBCUTANEOUS TISSUE, UNSP (4) Hypothyroid Code(s): E03.9 - HYPOTHYROIDISM, UNSPECIFIED (5) HTN (hypertension) Code(s): I10 - ESSENTIAL (PRIMARY) HYPERTENSION Assessment/Plan (1) CAD (coronary artery disease) of artery bypass graft Assessment/Plan: asa and plavix Code(s): I25.810 - ATHEROSCLEROSIS OF CABG W/O ANGINA PECTORIS (2) Hypothyroid Assessment/Plan: synthroid check tsh -> wnl Code(s): E03.9 - HYPOTHYROIDISM, UNSPECIFIED (3) Amputated toe of left foot Assessment/Plan: dressing per podiatry as per podi -> needs st abx iv abx vanco Code(s): Z89.422 - ACQUIRED ABSENCE OF OTHER LEFT TOE(S) (4) HTN (hypertension) Assessment/Plan: seen by cardio same meds Code(s): I10 - ESSENTIAL (PRIMARY) HYPERTENSION (5) Constipation Assessment/Plan: improved since hospital admission as diet here is softer for patient to eat Code(s): K59.00 - CONSTIPATION, UNSPECIFIED (6) Diabetes Assessment/Plan: bgm sliding scale endo hga1c 8.4 will add on medication Code(s): E11.9 - TYPE 2 DIABETES MELLITUS WITHOUT COMPLICATIONS Qualifiers: Diabetes mellitus type: type 2 Diabetes mellitus complication status: with circulatory complication Diabetes mellitus complication detail: with other circulatory complications [employer]
[2016-05-28] MEDS: VANCOMYCIN 1 GRAM (PRE-DOCKED) 250 ML IVPB SCH (14:18)
[2016-05-28] MEDS: RANITIDINE HCL 150 MG TABLET (FP) PO SCH (20:59)
[2016-05-28] MEDS: DOCUSATE SODIUM 100 MG CAPSULE (FP) PO SCH (20:59)
[2016-05-28] MEDS: ATORVASTATIN CA 40 MG TABLET (FP) PO SCH (20:59)
[2016-05-29] MEDS: INSULIN SLIDING SCALE (NOVOLOG) 1 VIAL SQ SCH ×4 (06:23→22:46)
[2016-05-29] MEDS: glipiZIDE 5 MG TABLET (FP) PO SCH ×2 (06:24→16:42)
[2016-05-29] MEDS: LEVOTHYROXINE NA 25 MCG TABLET (FP) PO SCH (06:25)
[2016-05-29 08:13] LABS: BASOPHIL 0.6 % (0-2.0); EOSINOPHIL 3.9 % (0-4.5); MCHC 33.1 g/dl (32.0-36.0); MEAN CELL VOLUME 87.6 fl (80-96); MEAN PLT VOLUME 8.3 fl (7.5-11.1); NEUTROPHILS 80.3 % (42.8-82.8); PLATELET COUNT 246 K/MM3 (134-434); RDW 13.5 % (11.6-15.6); WHITE BLOOD COUNT 7.5 K/mm3 (4.0-10.0)
[2016-05-29 08:43] LABS: ALBUMIN 2.8 g/dl (3.4-5.0); BILIRUBIN,TOTAL 0.5 mg/dL (0.2-1.0); CALCIUM 8.1 mg/dL (8.5-10.1); CREATININE 1.1 mg/dL (0.55-1.02)
[2016-05-29] MEDS ORDERED: PT OWN MED DRAWER 7, Y5N ONE (09:56)
[2016-05-29] MEDS: LABETALOL HCL 200 MG TABLET (FP) PO SCH ×2 (10:02→22:48)
[2016-05-29] MEDS: amLODIPine BESYLATE 10 MG TABLET (FP) PO SCH (10:02)
[2016-05-29] MEDS: ASPIRIN COATED 81 MG TABLET.EC PO SCH (10:02)
[2016-05-29] MEDS: CLOPIDOGREL BISULFATE 75 MG TABLET (FP) PO SCH (10:02)
[2016-05-29] MEDS: LISINOPRIL 20 MG TABLET (FP) PO SCH (10:02)
[2016-05-29] MEDS: HEPARIN NA (PORCINE) 5,000 UNITS/ML 1ML VIAL SQ SCH ×2 (10:03→22:48)
[2016-05-29] MEDS: buPROPion HCL 100 MG TABLET PO SCH (10:03)
--- NOTE | 2016-05-29 10:54 | PN ---
Progress Note (short form) - Note Progress Note: Podiatry: Seen and evaluated at bedside, NAD. Pain well controlled, denies F/V/N/C/SOB/ CP. Did have temp to 100 F yesterday, however currently afebrile, VSS. S/p L 3rd toe amputation for severe infection with osteomyelitis. RAUL: L foot: dressing C/D/I, no active bleeding, no strikethrough. Sutures well coapted, no dehiscence. Surrounding erythema resolved. No fluctuance, no purulence, no ascending cellulitis, no signs of active infection. Minimal tenderness to palpation. WBC: 7.5 Bone Cx: no growth Soft tissue Cx: MRSA Imp: 80 year old DM f s/p L 3rd toe amputation 1. Abx per ID 2. DSD L foot 3. Partial WB L foot with surgical shoe 4. No further intervention. Patient to follow up with me in [facility] upon discharge. Should not need skilled nursing Abx, as all infected bone removed. Santi Desai DPM
--- NOTE | 2016-05-29 13:15 | PN ---
Progress Note, Physician History of Present Illness: No c/o foot pain No fever/ chills Tolerating antibiotic - Current Medication List Current Medications: Active Medications Acetaminophen (Tylenol -) 650 mg PO Q4H PRN PRN Reason: FEVER OR PAIN Last Admin: 05/27/16 13:13 Dose: 650 mg Amlodipine Besylate (Norvasc -) 10 mg PO DAILY [facility] Last Admin: 05/29/16 10:02 Dose: 10 mg Aspirin (Ecotrin -) 81 mg PO DAILY [facility] Last Admin: 05/29/16 10:02 Dose: 81 mg Atorvastatin Calcium (Lipitor -) 40 mg PO HS [facility] Last Admin: 05/28/16 20:59 Dose: 40 mg Bupropion HCl (Wellbutrin -) 100 mg PO DAILY [facility] Last Admin: 05/29/16 10:03 Dose: 100 mg Clopidogrel Bisulfate (Plavix -) 75 mg PO DAILY [facility] Last Admin: 05/29/16 10:02 Dose: 75 mg Docusate Sodium (Colace -) 300 mg PO HS [facility] Last Admin: 05/28/16 20:59 Dose: 300 mg Glipizide (Glucotrol -) 10 mg PO BID@0700,1630 [facility] Last Admin: 05/29/16 06:24 Dose: 10 mg Heparin Sodium (Porcine) (Heparin -) 5,000 unit SQ BID [facility] Last Admin: 05/29/16 10:03 Dose: 5,000 unit Vancomycin HCl (Vancomycin (Pre-Docked)) 250 mls @ 166.667 mls/hr IVPB Q24H [facility] Last Admin: 05/28/16 14:18 Dose: 166.667 mls/hr Insulin Aspart (Novolog Vial Sliding Scale -) 1 vial SQ ACHS [facility] PRN Reason: Protocol Last Admin: 05/29/16 11:15 Dose: Not Given Labetalol HCl (Normodyne -) 200 mg PO BID [facility] Last Admin: 05/29/16 10:02 Dose: 200 mg Levothyroxine Sodium (Synthroid -) 25 mcg PO DAILY@0700 [facility] Last Admin: 05/29/16 06:25 Dose: 25 mcg Lisinopril (Prinivil) 40 mg PO DAILY [facility] Last Admin: 05/29/16 10:02 Dose: 40 mg Ranitidine HCl (Zantac -) 300 mg PO HS [facility] Last Admin: 05/28/16 20:59 Dose: 300 mg - Objective Vital Signs: Vital Signs Temperature 98.3 F 05/29/16 09:20 Pulse Rate 65 05/29/16 09:20 Respiratory Rate 18 05/29/16 09:20 Blood Pressure 125/49 05/29/16 09:20 O2 Sat by Pulse Oximetry (%) 99 05/28/16 21:00 Constitutional: Yes: No Distress Eyes: Yes: Conjunctiva Clear Cardiovascular: Yes: Regular Rate and Rhythm, S1, S2 Respiratory: Yes: CTA Bilaterally Gastrointestinal: Yes: Normal Bowel Sounds, Soft. No: Tenderness Extremities: Yes: Other (Toe amputation site healing well Erythema almost all resolved) Labs: CBC, BMP 05/29/16 06:30 05/29/16 06:30 Assessment/Plan Cellulitis/ infected ulcer L 3rd toe S/P amputation + wound c/s MRSA PCN/ quinolone allergies Diabetes/ diabetic neuropathy Continue vancomycin x 24h Check trough Local wound care
[2016-05-29] MEDS: ACETAMINOPHEN 325 MG TABLET (FP) PO PRN (13:28)
--- NOTE | 2016-05-29 13:37 | PN ---
Progress Note, Physician Chief Complaint: patient seen and examined got iv vanco today seen by ID and podiatry shoulde be able to go home tommorow - Current Medication List Current Medications: Active Medications Acetaminophen (Tylenol -) 650 mg PO Q4H PRN PRN Reason: FEVER OR PAIN Last Admin: 05/29/16 13:28 Dose: 650 mg Amlodipine Besylate (Norvasc -) 10 mg PO DAILY [facility] Last Admin: 05/29/16 10:02 Dose: 10 mg Aspirin (Ecotrin -) 81 mg PO DAILY [facility] Last Admin: 05/29/16 10:02 Dose: 81 mg Atorvastatin Calcium (Lipitor -) 40 mg PO HS [facility] Last Admin: 05/28/16 20:59 Dose: 40 mg Bupropion HCl (Wellbutrin -) 100 mg PO DAILY [facility] Last Admin: 05/29/16 10:03 Dose: 100 mg Clopidogrel Bisulfate (Plavix -) 75 mg PO DAILY [facility] Last Admin: 05/29/16 10:02 Dose: 75 mg Docusate Sodium (Colace -) 300 mg PO HS [facility] Last Admin: 05/28/16 20:59 Dose: 300 mg Glipizide (Glucotrol -) 10 mg PO BID@0700,1630 [facility] Last Admin: 05/29/16 06:24 Dose: 10 mg Heparin Sodium (Porcine) (Heparin -) 5,000 unit SQ BID [facility] Last Admin: 05/29/16 10:03 Dose: 5,000 unit Vancomycin HCl (Vancomycin (Pre-Docked)) 250 mls @ 166.667 mls/hr IVPB Q24H [facility] Last Admin: 05/28/16 14:18 Dose: 166.667 mls/hr Insulin Aspart (Novolog Vial Sliding Scale -) 1 vial SQ ACHS [facility] PRN Reason: Protocol Last Admin: 05/29/16 11:15 Dose: Not Given Labetalol HCl (Normodyne -) 200 mg PO BID [facility] Last Admin: 05/29/16 10:02 Dose: 200 mg Levothyroxine Sodium (Synthroid -) 25 mcg PO DAILY@0700 [facility] Last Admin: 05/29/16 06:25 Dose: 25 mcg Lisinopril (Prinivil) 40 mg PO DAILY [facility] Last Admin: 05/29/16 10:02 Dose: 40 mg Oxycodone HCl (Roxicodone -) 5 mg PO Q6H PRN PRN Reason: PAIN Ranitidine HCl (Zantac -) 300 mg PO HS [facility] Last Admin: 05/28/16 20:59 Dose: 300 mg - Objective Vital Signs: Vital Signs Temperature 98.3 F 05/29/16 09:20 Pulse Rate 65 05/29/16 09:20 Respiratory Rate 18 05/29/16 09:20 Blood Pressure 125/49 05/29/16 09:20 O2 Sat by Pulse Oximetry (%) 99 05/28/16 21:00 Constitutional: Yes: Calm Neck: Yes: Trachea Midline Cardiovascular: Yes: Regular Rate and Rhythm, S1, S2 Respiratory: Yes: CTA Bilaterally Gastrointestinal: Yes: Normal Bowel Sounds, Soft Edema: No Wound/Incision: Yes: Dressing Dry and Intact Neurological: Yes: Alert, Oriented Labs: CBC, BMP 05/29/16 06:30 05/29/16 06:30 Problem List - Problems (1) Amputated toe of left foot Assessment/Plan: dressing per podiatry iv abx till tommorow all infected bone removed partial weight bearing -podiatry FU at [facility] next week Microbiology 05/25/16 09:00 Tissue-Other Gram Stain - Final 05/25/16 09:00 Bone Gram Stain - Final 03/20/15 17:00 Bone Gram Stain - Final 03/20/15 17:00 Bone Tissue Culture - Final Strep Agalactiae Group B 05/25/16 09:00 Tissue-Other Tissue Culture - Preliminary Staphylococcus Species 05/25/16 09:00 Bone Tissue Culture - Preliminary NO AEROBIC GROWTH, 24 HRS Code(s): Z89.422 - ACQUIRED ABSENCE OF OTHER LEFT TOE(S) (2) CAD (coronary artery disease) of artery bypass graft Assessment/Plan: asa and plavix restart Code(s): I25.810 - ATHEROSCLEROSIS OF CABG W/O ANGINA PECTORIS (3) Hypothyroid Assessment/Plan: synthroid tsh is ok Code(s): E03.9 - HYPOTHYROIDISM, UNSPECIFIED (4) HTN (hypertension) Assessment/Plan: seen by cardio same meds Code(s): I10 - ESSENTIAL (PRIMARY) HYPERTENSION (5) Constipation Assessment/Plan: improved since hospital admission as diet here is softer for patient to eat Code(s): K59.00 - CONSTIPATION, UNSPECIFIED (6) Diabetes Assessment/Plan: bgm sliding scale endo hga1c 8.4 on glucotrol will add uzmauvia Code(s): E11.9 - TYPE 2 DIABETES MELLITUS WITHOUT COMPLICATIONS Qualifiers: Diabetes mellitus type: type 2 Diabetes mellitus complication status: with circulatory complication Diabetes mellitus complication detail: with other circulatory complications
[2016-05-29] MEDS: oxyCODONE HCL 5 MG TABLET PO PRN ×2 (13:39→21:30)
[2016-05-29] MEDS: VANCOMYCIN 1 GRAM (PRE-DOCKED) 250 ML IVPB SCH (17:54)
[2016-05-29] MEDS: DOCUSATE SODIUM 100 MG CAPSULE (FP) PO SCH (22:48)
[2016-05-29] MEDS: ATORVASTATIN CA 40 MG TABLET (FP) PO SCH (22:48)
[2016-05-29] MEDS: RANITIDINE HCL 150 MG TABLET (FP) PO SCH (22:49)
[2016-05-30] MEDS: INSULIN SLIDING SCALE (NOVOLOG) 1 VIAL SQ SCH ×3 (06:12→16:38)
[2016-05-30] MEDS: LEVOTHYROXINE NA 25 MCG TABLET (FP) PO SCH (06:15)
[2016-05-30] MEDS: glipiZIDE 5 MG TABLET (FP) PO SCH ×2 (06:15→16:38)
[2016-05-30] MEDS ORDERED: sitaGLIPtin PHOSPHATE 25 MG TABLET (FP) PO SCH (07:00)
[2016-05-30] MEDS ORDERED: PT OWN MED DRAWER 7, Y5N ONE (09:54)
[2016-05-30] MEDS: LABETALOL HCL 200 MG TABLET (FP) PO SCH (10:03)
[2016-05-30] MEDS: ASPIRIN COATED 81 MG TABLET.EC PO SCH (10:03)
[2016-05-30] MEDS: LISINOPRIL 20 MG TABLET (FP) PO SCH (10:04)
[2016-05-30] MEDS: amLODIPine BESYLATE 10 MG TABLET (FP) PO SCH (10:04)
[2016-05-30] MEDS: CLOPIDOGREL BISULFATE 75 MG TABLET (FP) PO SCH (10:04)
[2016-05-30] MEDS: buPROPion HCL 100 MG TABLET PO SCH (10:04)
[2016-05-30] MEDS: HEPARIN NA (PORCINE) 5,000 UNITS/ML 1ML VIAL SQ SCH (10:08)
--- NOTE | 2016-05-30 10:47 | DS ---
Physical Examination Vital Signs: Vital Signs Temperature 98.4 F 05/30/16 06:38 Pulse Rate 69 05/30/16 06:38 Respiratory Rate 18 05/30/16 06:38 Blood Pressure 143/61 05/30/16 06:38 O2 Sat by Pulse Oximetry (%) 99 05/28/16 21:00 Constitutional: Yes: Calm, Thin Neck: Yes: Trachea Midline Cardiovascular: Yes: Regular Rate and Rhythm, S1, S2 Respiratory: Yes: CTA Bilaterally Gastrointestinal: Yes: Normal Bowel Sounds, Soft Edema: No Wound/Incision: Yes: Dressing Dry and Intact (s/p left toe amputation) Neurological: Yes: Alert, Oriented Labs: CBC, BMP 05/29/16 06:30 05/29/16 06:30 Discharge Summary Reason For Visit: DIABETIC FOOT ULCER/ OSTEOMYELITIS Current Active Problems CAD (coronary artery disease) of artery bypass graft (Acute) Diabetes (Acute) Diabetic foot infection (Acute) Diarrhea (Acute) Dizziness (Acute) HX: anticoagulation (Acute) Hypothyroid (Acute) Osteomyelitis of ankle or foot, acute (Acute) S/P CABG (coronary artery bypass graft) (Acute) Hospital Course: patient was admitted for left 3 toe infection s/p amputation bc osteo and infection got iv abx now ready to go back to SNF Condition: Improved - Instructions Diet, Activity, Other Instructions: partial weight bearing FUwith dr pagan at [facility] next week januvia 25 mg po daily lisinopril 40mg po daily give patient soft well cooked spinach and broccoli daily in menu Referrals: Rick Francisco MD [Primary Care Provider] - Disposition: RESIDENTIAL FACILITY - Home Medications Comprehensive Discharge Medication List: Ambulatory Orders Aspirin Coated [Ecotrin -] 81 mg PO DAILY #30 tablet.ec 08/06/14 Atorvastatin Ca [Lipitor] 40 mg PO HS #1 tablet 08/06/14 Bupropion HCl [Wellbutrin -] 100 mg PO DAILY #30 tablet 08/06/14 Clopidogrel Bisulfate [Plavix -] 75 mg PO DAILY #30 tablet 08/06/14 Glipizide [Glucotrol -] 10 mg PO BID@0700,1630 #60 tablet 08/06/14 Labetalol HCl [Normodyne -] 200 mg PO BID #1 tablet 08/06/14 Levothyroxine [Synthroid -] 25 mcg PO DAILY #30 tablet 08/06/14 Amlodipine Besylate 10 mg PO DAILY 12/17/15 Famotidine [Pepcid -] 40 mg PO HS 12/17/15 Charlton-3 Fatty Acids/Fish Oil [Fish Oil 1,000 mg Softgel] 1 each PO DAILY Lisinopril [Prinivil] 20 mg PO DAILY tablet 12/23/15 Acetaminophen [Tylenol] 650 mg PO PRN PRN 03/20/16 Insulin Regular [NOVOLIN R VIAL *IVPUSH / ER / ICU Only*] 0 units SQ BIDAC 03/20 Naloxegol Oxalate [Movantik] 12.5 mg PO DAILY 03/20/16 Oxycodone HCl 5 mg PO HS 03/20/16 Clindamycin [Cleocin -] 1 tab PO TID 05/23/16
--- NOTE | 2016-05-30 10:49 | PN ---
Progress Note (short form) - Note Progress Note: vancomycin infusion was disrupted bc line infiltration cindi have podiatry see patient then dc back to [facility] Problem List - Problems (1) Amputated toe of left foot Code(s): Z89.422 - ACQUIRED ABSENCE OF OTHER LEFT TOE(S) (2) CAD (coronary artery disease) of artery bypass graft Code(s): I25.810 - ATHEROSCLEROSIS OF CABG W/O ANGINA PECTORIS (3) Hypothyroid Code(s): E03.9 - HYPOTHYROIDISM, UNSPECIFIED (4) HTN (hypertension) Code(s): I10 - ESSENTIAL (PRIMARY) HYPERTENSION (5) Constipation Code(s): K59.00 - CONSTIPATION, UNSPECIFIED (6) Diabetes Code(s): E11.9 - TYPE 2 DIABETES MELLITUS WITHOUT COMPLICATIONS Qualifiers: Diabetes mellitus type: type 2 Diabetes mellitus complication status: with circulatory complication Diabetes mellitus complication detail: with other circulatory complications
--- NOTE | 2016-05-30 12:09 | PN ---
Progress Note, Physician History of Present Illness: No c/o foot pain No fever/ chills - Current Medication List Current Medications: Active Medications Acetaminophen (Tylenol -) 650 mg PO Q4H PRN PRN Reason: FEVER OR PAIN Last Admin: 05/27/16 13:13 Dose: 650 mg Amlodipine Besylate (Norvasc -) 10 mg PO DAILY [facility] Last Admin: 05/30/16 10:04 Dose: 10 mg Aspirin (Ecotrin -) 81 mg PO DAILY [facility] Last Admin: 05/30/16 10:03 Dose: 81 mg Atorvastatin Calcium (Lipitor -) 40 mg PO HS [facility] Last Admin: 05/29/16 22:48 Dose: 40 mg Bupropion HCl (Wellbutrin -) 100 mg PO DAILY [facility] Last Admin: 05/30/16 10:04 Dose: 100 mg Clopidogrel Bisulfate (Plavix -) 75 mg PO DAILY [facility] Last Admin: 05/30/16 10:04 Dose: 75 mg Docusate Sodium (Colace -) 300 mg PO HS [facility] Last Admin: 05/29/16 22:48 Dose: 300 mg Glipizide (Glucotrol -) 10 mg PO BID@0700,1630 [facility] Last Admin: 05/30/16 06:15 Dose: 10 mg Heparin Sodium (Porcine) (Heparin -) 5,000 unit SQ BID [facility] Last Admin: 05/30/16 10:08 Dose: Not Given Insulin Aspart (Novolog Vial Sliding Scale -) 1 vial SQ ACHS [facility] PRN Reason: Protocol Last Admin: 05/30/16 11:31 Dose: Not Given Labetalol HCl (Normodyne -) 200 mg PO BID [facility] Last Admin: 05/30/16 10:03 Dose: 200 mg Levothyroxine Sodium (Synthroid -) 25 mcg PO DAILY@0700 [facility] Last Admin: 05/30/16 06:15 Dose: 25 mcg Lisinopril (Prinivil) 40 mg PO DAILY [facility] Last Admin: 05/30/16 10:04 Dose: 40 mg Oxycodone HCl (Roxicodone -) 5 mg PO Q6H PRN PRN Reason: PAIN Last Admin: 05/29/16 21:30 Dose: 5 mg Ranitidine HCl (Zantac -) 300 mg PO [facility] Last Admin: 05/29/16 22:49 Dose: 300 mg Sitagliptin Phosphate (Januvia -) 25 mg PO DAILY@0700 [facility] Last Admin: 05/30/16 06:15 Dose: 25 mg - Objective Vital Signs: Vital Signs Temperature 99 F 05/30/16 09:00 Pulse Rate 64 05/30/16 09:00 Respiratory Rate 18 05/30/16 09:00 Blood Pressure 141/58 05/30/16 09:00 O2 Sat by Pulse Oximetry (%) 99 05/28/16 21:00 Constitutional: Yes: No Distress, Thin Eyes: Yes: Conjunctiva Clear Cardiovascular: Yes: Regular Rate and Rhythm, S1, S2 Respiratory: Yes: CTA Bilaterally Gastrointestinal: Yes: Normal Bowel Sounds, Soft. No: Tenderness Extremities: Yes: Other (Toe amputation site with sutures in place Minimal residual erythema No wound drainage) Labs: CBC, BMP 05/29/16 06:30 05/29/16 06:30 Assessment/Plan Cellulitis/ infected ulcer L 3rd toe S/P amputation + wound c/s MRSA nearly all resolved PCN/ quinolone allergies Diabetes/ diabetic neuropathy Discontinue vancomycin Substitute Bactrim BS po bid x 3d Local wound care
[2016-05-30] MEDS ORDERED: SULFAMETHOXAZOLE/TRIMETHOPRIM 800MG/160MG D.S. TABLET PO SCH (12:15)
[2016-05-30 15:09] VITALS: BP 124/50; PULSE 66; TEMP 98.8
--- NOTE | 2016-05-30 16:29 | PN ---
Progress Note (short form) - Note Progress Note: Podiatry: Seen and evaluated at bedside, NAD. Pain well controlled, denies F/V/N/C/SOB/ CP. S/p L 3rd toe amputation for acute osteomyelitis with cellulitis. Afebrile , VSS. RAUL: L foot: dressing C/D/I, no active bleeding, no strikethrough. Sutures well coapted, no dehiscence. No erythema, no fluctuance, no purulence, no ascending cellulitis, no signs of active infection. Minimal tenderness to palpation. Imp: 80 year old DM F s/p L 3rd toe amputation 1. Abx per ID 2. DSD L foot 3. Partial WB L foot with surgical shoe 4. Podiatric stable for discharge. Pt to follow up on 06/06/16 at [facility] Santi Desai DPM
== END 2016-05-30 17:44 | DRG 617 ==
LOC: JER 13:11 → JERBED 16:51 → J8W 20:58
PROVIDERS: ADMIT Family Medicine; ATTEND Family Medicine
PROC: 0QBP0ZX Excision of Left Metatarsal, Open Approach, Diagnostic (ICD-10-PCS; 2016-05-25)
PROC: 0Y6U0Z0 Detachment at Left 3rd Toe, Complete, Open Approach (ICD-10-PCS; principal; 2016-05-25 07:30)
DX: E11.69 Type 2 diabetes mellitus with other specified complication (principal); M86.9 Osteomyelitis, unspecified; L03.116 Cellulitis of left lower limb; E11.621 Type 2 diabetes mellitus with foot ulcer; E11.42 Type 2 diabetes mellitus with diabetic polyneuropathy; L97.529 Non-pressure chronic ulcer of other part of left foot with unspecified severity; Z79.4 Long term (current) use of insulin; E03.9 Hypothyroidism, unspecified; E78.5 Hyperlipidemia, unspecified; I25.10 Atherosclerotic heart disease of native coronary artery without angina pectoris; Z95.1 Presence of aortocoronary bypass graft; Z95.5 Presence of coronary angioplasty implant and graft; Z96.642 Presence of left artificial hip joint; K21.9 Gastro-esophageal reflux disease without esophagitis; I11.0 Hypertensive heart disease with heart failure; I50.9 Heart failure, unspecified; B95.62 Methicillin resistant Staphylococcus aureus infection as the cause of diseases classified elsewhere; K59.00 Constipation, unspecified
CPT/HCPCS: 11042; 36415; 71010-TC; 73630-TC-LT; 80053; 80061; 83036; 83721; 84134; 84439; 84443; 85025; 85651; 86140; 87040; 87070; 87075; 87186; 87205; 88304-TC; 88305-TC; 88311-TC; 93005; 93010; 93306-TC; 94760; 97116-GP; 97162-PG; 99282-25; G0480; J1644

== ENCOUNTER 2017-06-17 07:38 | Emergency (ER) | payer OTHER ==
[2017-06-17 08:06] VITALS: BMI 29.2
--- NOTE | 2017-06-17 08:13 | PDOC ---
History of Present Illness - General Chief Complaint: Injury Stated Complaint: FALL History Source: Patient Exam Limitations: No Limitations - History of Present Illness Initial Comments: 81 yo F history HTN, HL, DM, CAD on ASA/plavix presents s/p fall. She was at her NH, tripped over something on the floor, falling forward. Hit her forehead on the floor, sustaining a laceration. No LOC, no neck pain. She denies weakness , numbness, EASON. No other injuries. Past History - Past Medical History Allergies/Adverse Reactions: Allergies Allergy/AdvReac Type Severity Reaction Status Date / Time levofloxacin [From Levaquin] Allergy Verified 06/17/17 08:06 Penicillins Allergy Rash Verified 06/17/17 08:06 chocolate AdvReac Unknown Hives Uncoded 06/17/17 08:06 Home Medications: Ambulatory Orders Aspirin Coated [Ecotrin -] 81 mg PO DAILY #30 tablet.ec 08/06/14 Clopidogrel Bisulfate [Plavix -] 75 mg PO DAILY #30 tablet 08/06/14 Glipizide [Glucotrol -] 10 mg PO BID@0700,1630 #60 tablet 08/06/14 Amlodipine Besylate 10 mg PO DAILY 12/17/15 Famotidine [Pepcid -] 40 mg PO HS 12/17/15 [place]-3 Fatty Acids/Fish Oil [Fish Oil 1,000 mg Softgel] 2 each PO BID 12/17/15 Acetaminophen [Tylenol] 650 mg PO PRN PRN 03/20/16 Insulin Regular [Novolin R Vial -] 0 units SQ BIDAC 03/20/16 Sulfamethoxazole/Trimethoprim [Bactrim Ds Tablet] 1 each PO BID #14 tablet 03/20 Bupropion HCl [Wellbutrin Sr] 300 mg PO DAILY 06/17/17 Docusate Sodium [Colace] 300 mg PO HS 06/17/17 Insulin Glargine,Hum.rec.anlog [Lantus] 15 unit SQ HS 06/17/17 Labetalol HCl [Normodyne -] 200 mg PO BID 06/17/17 Lactulose (Oral Use) [Cephulac -] 20 gm PO BID 06/17/17 Levothyroxine [Synthroid -] 50 mcg PO DAILY 06/17/17 Lisinopril [Prinivil] 30 mg PO DAILY 06/17/17 Naloxegol Oxalate [Movantik] 12.5 mg PO DAILY 06/17/17 Rosuvastatin [Crestor -] 20 mg PO DAILY 06/17/17 Sennosides [Senna] 2 tab PO HS 06/17/17 Sitagliptin Phosphate [Januvia -] 100 mg PO DAILY 06/17/17 Anemia: Yes Asthma: (PNEUMONIA,ACUTE BRONCHITIS) Cardiac Disorders: Yes (CAD, ID, stent, CABG) COPD: No CHF: (LEFT VENTRICULAR FAILURE) Diabetes: Yes (IDDM) GI Disorders: Yes (GERD,CONSTIPATION) HTN: Yes Hypercholesterolemia: Yes Thyroid Disease: Yes (HYPOTHYROIDISM) - Surgical History Cardiac Surgery: Yes (STENT X 1, bypass) Orthopedic Surgery: Yes (LEFT HIP REPLACEMENT) - Suicide/Smoking/Psychosocial Hx Smoking Status: No Smoking History: Unknown if ever smoked Have you smoked in the past 12 months: No Number of Cigarettes Smoked Daily: 0 If you are a former smoker, when did you quit?: 50 years Information on smoking cessation initiated: No Hx Alcohol Use: No Drug/Substance Use Hx: No Substance Use Type: None Hx Substance Use Treatment: No Review of Systems - Review of Systems Able to Perform ROS?: Yes Comments:: GENERAL/CONSTITUTIONAL: No fever or chills. No weakness. HEAD, EYES, EARS, NOSE AND THROAT: No change in vision. No ear pain or discharge. No sore throat. CARDIOVASCULAR: No chest pain or shortness of breath. RESPIRATORY: No cough, wheezing, or hemoptysis. GASTROINTESTINAL: No nausea, vomiting, diarrhea or constipation. GENITOURINARY: No dysuria, frequency, or change in urination. MUSCULOSKELETAL: No joint or muscle swelling or pain. No neck or back pain. SKIN: No rash. +Lacerations. NEUROLOGIC: No headache, vertigo, loss of consciousness, or change in strength/ sensation. ENDOCRINE: No increased thirst. No abnormal weight change. HEMATOLOGIC/LYMPHATIC: No anemia, easy bleeding, or history of blood clots. ALLERGIC/IMMUNOLOGIC: No hives or skin allergy. *Physical Exam - Vital Signs Last Vital Signs Temp Pulse Resp BP Pulse Ox 97.1 F L 75 16 166/75 100 06/17/17 07:38 06/17/17 07:38 06/17/17 07:38 06/17/17 07:38 06/17/17 07:38 - Physical Exam Comments: GENERAL: Awake, alert, and fully oriented, in no acute distress HEAD: No signs of trauma EYES: PERRLA, EOMI, sclera anicteric, conjunctiva clear ENT: Auricles normal inspection, hearing grossly normal, nares patent, oropharynx clear without exudates. Moist mucosa NECK: Normal ROM, supple, no lymphadenopathy, JVD, or masses LUNGS: Breath sounds equal, clear to auscultation bilaterally. No wheezes, and no crackles HEART: Regular rate and rhythm, normal S1 and S2, no murmurs, rubs or gallops ABDOMEN: Soft, nontender, normoactive bowel sounds. No guarding, no rebound. No masses EXTREMITIES: Normal range of motion, no edema. No clubbing or cyanosis. No cords, erythema, or tenderness NEUROLOGICAL: Cranial nerves II through XII grossly intact. Normal speech, normal gait SKIN: Warm, Dry, normal turgor, no rashes. +Laceration to L forehead, oozing blood. Procedures - Laceration/Wound Repair Left Frontal Wound Length: to 2.5 cm Wound Explored: clean Wound's Depth, Shape: superficial, linear, contused tissue Anesthesia: 1% Lidocaine Amount of Anesthetic (ccs): 2 Wound Repaired With: Sutures Suture Size/Type: 5:0 Number of Sutures: 6 Sterile Dressing Applied: Yes Progress: 06/17/17 09:32 Small arteriole with bleeding during initial repair. As sutures were placed the bleeding resolved. Compression dressing placed. Medical Decision Making - Medical Decision Making 06/17/17 12:01 Pt with negative CTH. Head wound reexamined, no active bleeding, no hematoma. New sterile dressing placed. Stable for DC back to [place]. *DC/Admit/Observation/Transfer Diagnosis at time of Disposition: Fall Qualifiers: Encounter type: initial encounter Qualified Code(s): W19.XXXA - Unspecified fall, initial encounter Laceration of head Qualifiers: Encounter type: initial encounter Location of open wound of head: other part of head Foreign body presence: without foreign body Qualified Code(s): S01.81XA - Laceration without foreign body of other part of head, initial encounter - Discharge Dispostion Disposition: HOME Condition at time of disposition: Improved Admit: No - Referrals - Patient Instructions Printed Discharge Instructions: DI for Laceration Repair -- Simple, DI for Closed Head Injury Additional Instructions: Return to the ER in 7 days to have the stitches removed. If you have redness, swelling, or drainage of pus, return to the ER immediately. Keep the wound dry for the first 48 hours, after that it is ok to shower, get it wet. Do not apply any lotions, creams, or soaps. - Post Discharge Activity
[2017-06-17 14:15] VITALS: BP 149/75; PULSE 81; TEMP 98.1
--- NOTE | 2017-06-18 12:27 | EKG ---
Test Reason : Blood Pressure : / mmHG Vent. Rate : 075 BPM Atrial Rate : 075 BPM P-R Int : 176 ms QRS Dur : 124 ms QT Int : 448 ms P-R-T Axes : 046 -59 078 degrees QTc Int : 500 ms NORMAL SINUS RHYTHM RIGHT BUNDLE BRANCH BLOCK LEFT ANTERIOR FASCICULAR BLOCK BIFASCICULAR BLOCK VOLTAGE CRITERIA FOR LEFT VENTRICULAR HYPERTROPHY ABNORMAL ECG WHEN COMPARED WITH ECG OF 23-MAY-2016 18:41, NO SIGNIFICANT CHANGE WAS FOUND Confirmed by ADRIENNE MOYA MD ([id number]) on 06/18/2017 12:27:03 PM Referred By: Confirmed By:ADRIENNE MOYA MD
== END 2017-06-17 14:15 ==
LOC: JER 07:38
PROC: 0HQ1XZZ Repair Face Skin, External Approach (ICD-10-PCS; principal; 2017-06-17)
DX: S01.81XA Laceration without foreign body of other part of head, initial encounter (principal); W01.0XXA Fall on same level from slipping, tripping and stumbling without subsequent striking against object, initial encounter; Y93.89 Activity, other specified; Y92.128 Other place in nursing home as the place of occurrence of the external cause; Y99.8 Other external cause status; I25.10 Atherosclerotic heart disease of native coronary artery without angina pectoris; I11.0 Hypertensive heart disease with heart failure; I50.1 Left ventricular failure, unspecified; Z95.1 Presence of aortocoronary bypass graft; Z95.5 Presence of coronary angioplasty implant and graft; I25.2 Old myocardial infarction; E11.9 Type 2 diabetes mellitus without complications; Z79.4 Long term (current) use of insulin; Z79.84 Long term (current) use of oral hypoglycemic drugs; E78.00 Pure hypercholesterolemia, unspecified; E03.9 Hypothyroidism, unspecified; K21.9 Gastro-esophageal reflux disease without esophagitis; K59.00 Constipation, unspecified; Z79.01 Long term (current) use of anticoagulants; Z79.82 Long term (current) use of aspirin
CPT/HCPCS: 70450-TC; 72125-TC; 93005; 93010; 99282-25